=== PATIENT | male | born 1980 | race Two or more races ===

== ENCOUNTER 2025-05-09 20:29 | Inpatient (IN) ==
--- NOTE | 2025-05-09 21:04 | Emergency Department Note ---
Impression & Plan Cellulitis, Chills, Infected surgical wound ED Provider Note NAME: DUSTY OVALLES AGE: 44 SEX: M : 1980 ARRIVES VIA: Walk-In INFORMANT: [Patient] ED PROVIDER(S): [Ruy Turner MD] CHIEF COMPLAINT: Left leg pain HISTORY OF PRESENT ILLNESS: The patient is a 44-year-old male who has had 7 surgeries on the left ankle over the last 3 years. His last surgery was this past October. The patient did have the last surgery in [place] at the [facility]. The patient states that after the surgery, he was on antibiotics for what was thought to be infection. He finished up the antibiotics about 20 days ago. In the last 2 days, he has had some chills and fever and, has noticed some increased swelling as well as some drainage from the medial aspect of the surgical wound. No real increased pain. He is concerned about recurrent infection. There has been no cough or congestion. No abdominal pain or vomiting. No urinary complaints. Of note, he is a diabetic. Of note, the patient is Indian-speaking, the translation line was used. PMHx/PSHx/Social Hx: See Below PHYSICAL EXAM: GENERAL: Patient is in no acute distress. HEENT: No acute trauma, normocephalic atraumatic, mucous membranes moist, no nasal congestion. NECK: No stridor, no adenopathy, no meningismus, trachea is midline. LUNGS: Clear to auscultation bilaterally, no wheeze, no rhonchi, breath sounds equal. HEART: Without murmurs gallops or rubs, regular rate and rhythm. ABDOMEN: Soft, nontender, no peritonitis. EXTREMITIES: No cyanosis. The left lower extremity is swollen and erythematous in particular over the ankle joint. There is an open surgical wound along the medial aspect of the ankle and, there is some drainage noted, this was obtained for culture. Patient does have discomfort to palpate the medial aspect of the left ankle. NEUROLOGIC: Oriented x 3, no acute motor or sensory deficits, no focal weakness. SKIN: No jaundice, no diaphoresis. DIFFERENTIAL DIAGNOSIS: Sepsis, bacteremia, osteomyelitis, cellulitis, among others. EMERGENCY DEPARTMENT PROCEDURES: MEDICAL DECISION MAKING: There is no leukocytosis. A mild anemia was seen with a hemoglobin of 12.1. There was a normal platelet count. No bandemia. No coagulopathy. No renal failure or significant electrolyte abnormality. Lactic acid level is not elevated making sepsis less likely. There was no concerning liver enzyme elevation. Left ankle CT scan shows cellulitis, no abscess or osteomyelitis. Left leg venous ultrasound did not show findings of DVT. On exam, the patient had warmth and discomfort and erythema of the left ankle, especially medially. Some scant drainage from the wound was noted. A culture was obtained. Patient received IV saline for hydration. He received IV ceftriaxone and IV vancomycin. Given the recurrent infection, given his past history, I do think admission with IV antibiotic therapy would be warranted. I spoke with the patient, I spoke with case management, the on-call hospitalist was consulted. Prior/Outside records/notes reviewed: None ECG per my interpretation: Indication was possible sepsis. The ECG shows a normal sinus rhythm with a rate of 95. There is no ST elevation, no PVCs. The QTc is 427. Continuous Cardiac Monitoring per my interpretation: An order was placed for continuous cardiac monitoring. The monitor shows a rate of 101 with sinus tachycardia. Imaging/x-ray results per my interpretation: Chronic Medical/Social conditions affecting care: History of diabetes. Indian-speaking. Care/Management discussed with: Case management, the on-call hospitalist. Level of care consideration(s): After review of the information above and other included data: --I believe the patient requires escalation of care to admission DISPOSITION: Admission Past Med/Surg History Problem List (Updated 05/09/25 @ 23:57 by Ruy Turner MD) Infected surgical wound (Acute) Chills (Acute) Cellulitis (Acute) Medical History Diabetes mellitus Social History Smoking Status: Never smoker Preferred Language: Indian Communication Tools: IPad Feels Safe at Home: Yes Allergies Allergies Allergy/AdvReac Type Severity Reaction Status Date / Time No Known Allergies Allergy Verified 05/09/25 21:20 Home Meds Home Medications Medication Instructions Recorded Confirmed metformin 500 mg tablet 500 mg PO BID 05/09/25 05/09/25 Results & Data (ED) Vital Signs Vital Signs - 24 hr 05/09/25 20:31 05/09/25 21:19 05/09/25 21:30 Temperature 36.6 C Temperature Source Temporal Artery Scan Pulse Rate 101 H Pulse Rate [Radial] 98 H Respiratory Rate 18 18 Respiratory Effort / Characteristics Non-Labored Spontaneous Non-Labored Spontaneous Respiratory Depth Normal Normal Respiratory Pattern Regular Blood Pressure 132/92 Blood Pressure [Left Arm] 127/86 Blood Pressure Mean 105 Blood Pressure Mean [Left Arm] 99 Pulse Oximetry 96 98 Oxygen Delivery Method Room Air Room Air Room Air Sepsis Recent Fever Within 48 Hours No Sepsis New/Unexplained Change in Mental Status No Sepsis Action Taken by Nursing No Action Required 05/09/25 22:13 05/09/25 23:00 Temperature Temperature Source Pulse Rate 88 Pulse Rate [Radial] 82 Respiratory Rate 17 Respiratory Effort / Characteristics Non-Labored Spontaneous Respiratory Depth Normal Respiratory Pattern Regular Blood Pressure Blood Pressure [Left Arm] 134/78 Blood Pressure Mean Blood Pressure Mean [Left Arm] 96 Pulse Oximetry 98 Oxygen Delivery Method Room Air Sepsis Recent Fever Within 48 Hours Sepsis New/Unexplained Change in Mental Status Sepsis Action Taken by Jail Medications Current Medication List: was personally reviewed by me Laboratory Data Attestation: I reviewed the patient's lab results. 05/09/25 21:00 05/09/25 21:00 Lab Results 05/09/25 Range/Units 21:00 WBC 7.49 (4.8-10.8) K/ul RBC 4.38 L (4.70-6.10) M/uL Hgb 12.1 L (14.0-18.0) g/dl Hct 35.3 L (42.0-52.0) % MCV 80.6 (80.0-100.0) fL MCH 27.6 (25.0-34.0) pg MCHC 34.3 (32.0-36.0) g/dL RDW Std Deviation 41.8 (36.4-46.3) fL RDW Coeff of Yoseph 14.3 (11.5-14.5) % Plt Count 281 (130-400) K/uL MPV 9.9 (9.4-12.4) fL Immature Gran % (Auto) 0.4 % Neut % (Auto) 71.4 % Lymph % (Auto) 17.8 % [place] % (Auto) 8.8 % Eos % (Auto) 1.3 % Baso % (Auto) 0.3 % Neut # (Auto) 5.35 (1.40-6.50) K/uL Lymph # (Auto) 1.33 (1.20-3.40) K/uL [place] # (Auto) 0.66 H (0.11-0.59) K/uL Eos # (Auto) 0.10 (0.00-0.50) K/uL Baso # (Auto) 0.02 (0.00-0.20) K/uL Immature Gran # (Auto) 0.03 (0.01-0.20) K/uL PT 10.3 (9.0-12.0) Seconds INR 1.0 (0.9-1.1) APTT 26 (21-31) Seconds PTT Ratio 1.0 Sodium 139 (136-145) mmol/L Potassium 4.0 (3.5-5.1) mmol/L Chloride 106 (98-107) mmol/L Carbon Dioxide 24 (21-32) mmol/L Anion Gap 9 (3-11) BUN 17 (6-23) mg/dl Creatinine 1.02 (0.6-1.4) mg/dl Est Cr Clr Drug Dosing 94.0 ml/min eGFR 91.79 BUN/Creatinine Ratio 16.7 (10-20) Glucose 130 H (70-99(Fasting)) mg/dl Lactate 1.2 (0.4-2.0) mmol/L Calcium 9.0 (8.6-10.3) mg/dl Magnesium 2.1 (1.7-2.4) mg/dl Total Bilirubin 0.5 (0.2-1.0) mg/dl Direct Bilirubin 0.0 (0-0.2) mg/dl AST 22 (13-39) U/L ALT 23 (7-52) U/L Alkaline Phosphatase 133 H (34-104) U/L Troponin I High Sens 3.2 (0-20) pg/ml Total Protein 7.7 (6.0-8.3) gm/dl Albumin 4.1 (3.4-5.0) gm/dl Procalcitonin 0.03 (0-0.5) ng/ml Administered Medications Vancomycin HCl 2,250 mg/ (Sodium Chloride) 545 mls @ 200 mls/hr IV NOW ONE Stop: 05/10/25 01:56 Last Admin: 05/09/25 23:47 Dose: 200 mls/hr Documented By: KRISTINA Discontinued Medications Sodium Chloride (Nss) 1,000 mls @ 999 mls/hr IV .Q1H1M KANDIS Stop: 05/09/25 21:45 Last Infusion: 05/09/25 22:43 Dose: Infused Documented By: Admin: 05/09/25 21:39 Dose: 999 mls/hr Documented By: KRISTINA Ceftriaxone Sodium (Rocephin) 2,000 mg in 50 mls @ 100 mls/hr IV NOW STA Stop: 05/09/25 23:05 Last Infusion: 05/09/25 23:23 Dose: Infused Documented By: Admin: 05/09/25 22:49 Dose: 100 mls/hr Documented By: KRISTINA Ioversol (Optiray 320 100ml) 93 ml IV ONCE ONE Stop: 05/09/25 21:34 Last Admin: 05/09/25 21:33 Dose: 93 ml Documented By: PILAR Imaging Data Radiologist's Impression: Ankle CT 05/09/25 20:58 Exam(s): CT LEFT ANKLE With Contrast IV Amt: 93cc opti 320 EXAM: CT Left Lower Extremity With Intravenous Contrast, Ankle CLINICAL HISTORY: poss abscess. TECHNIQUE: Axial computed tomography images of the left ankle with intravenous contrast. CTDI is 25.24 mGy and DLP is 532.65 mGy-cm. Automated exposure control was utilized for the study. A dose lowering technique was utilized adhering to the principles of ALARA. CONTRAST: Patient received 93cc opti 320 of IV contrast COMPARISON: No relevant prior studies available. FINDINGS: Artifacts: There is extensive beam hardening artifact from metallic hardware throughout the examination. Bones/joints: An intramedullary jim is noted involving the distal tibial meta diaphysis. There also medial and lateral plates spanning the transverse fracture through the tibial metaphysis with extensive screw fixation. There is also multiple screws extending through the talonavicular joint in a lateral surgical clips spanning the anterior calcaneus and cuboid. There is partial ankylosis of the talocalcaneal joint. Degenerative changes of the ankle. Incomplete fusion of the distal tibial fracture. There is absence of the proximal fibula with only a distal segment remaining. Soft tissues: Heterogeneous appearance of the muscle bundles with extensive fatty infiltration. There is diffuse circumferential fat stranding and soft tissue swelling throughout the included distal calf, ankle and dorsum of the foot. No obvious loculated fluid collection, accounting for limitations. No tracking subcutaneous emphysema. IMPRESSION: There is diffuse circumferential fat stranding and soft tissue swelling throughout the included distal calf, ankle and dorsum of the foot. No obvious loculated fluid collection, accounting for limitations. No tracking subcutaneous emphysema, to suggest necrotizing fasciitis. Extensive postoperative changes, as noted above. No acute osseous abnormality suspected. Electronically signed by: Damaso Mir MD 05/09/25 22:30 PM Venous Doppler Study 05/09/25 20:58 Exam(s): US VENOUS LEFT LOWER EXTREMITY EXAM: US Duplex Left Lower Extremity Veins CLINICAL HISTORY: LLE swollen. TECHNIQUE: Real-time duplex ultrasound scan of the left lower extremity veins integrating B-mode two-dimensional vascular structure, Doppler spectral analysis, color flow Doppler imaging and compression. COMPARISON: No relevant prior studies available. FINDINGS: Deep veins: No DVT in the visualized common femoral, femoral, proximal deep femoral or popliteal veins. The veins demonstrate normal color flow, are normally compressible, with normal phasic flow and/or augmentation response. The interrogated calf veins are patent. Superficial veins: No thrombus in the saphenofemoral junction. Soft tissues: Subcutaneous edema noted at the calf. No popliteal cyst. Lymph nodes: Normal lymph nodes in the left inguinal region with preserved fatty hilum, measuring less than 1 cm in short axis diameter. IMPRESSION: No evidence for deep vein thrombosis involving the left lower extremity. Electronically signed by: Damaso Mir MD 05/09/25 23:32 PM Discharge Plan Visit Data Chief Complaint: Leg Injury/Pain Stated Complaint: LT LEG INJURY ED Provider: Ruy Turner Discharge Problem: Cellulitis, Chills, Infected surgical wound Patient Disposition: Admitted As Inpatient Condition: Fair Forms Stand Alone Forms: FP Complete Prescriptions Prescriptions: No Action metformin 500 mg Tablet 500 mg PO BID Referrals Referrals: PCP,NO [Primary Care Provider] - Discharge Problem: Cellulitis Qualifiers: Site of cellulitis: extremity Site of cellulitis of extremity: lower extremity Laterality: left Qualified Code(s): L03.116 - Cellulitis of left lower limb
[2025-05-09] MEDS: OPTIRAY 320 100ml IV ONE (21:33)
[2025-05-09] MEDS: SODIUM CHLORIDE 0.9% 1,000 ML IV SCH (21:39)
[2025-05-09 21:52] LABS: Hematocrit (blood only) 35.3 % (42.0-52.0); Hemoglobin 12.1 g/dl (14.0-18.0); Immature Granulocytes # (auto) 0.03 K/uL (0.01-0.20); Immature Granulocytes % (auto) 0.4 %; Mean Corpuscular Hemoglobin 27.6 pg (25.0-34.0); Mean Corpuscular Volume 80.6 fL (80.0-100.0); Platelet Count 281 K/uL (130-400); RDW Standard Deviation 41.8 fL (36.4-46.3); Red Blood Count 4.38 M/uL (4.70-6.10); White Blood Count 7.49 K/ul (4.8-10.8)
[2025-05-09 21:53] LABS: Alanine Aminotransferase 23.0 U/L (7-52); Albumin Level 4.1 gm/dl (3.4-5.0); Alkaline Phosphatase 133.0 U/L (34-104); Anion Gap 9.0 (3-11); Bilirubin,Total 0.5 mg/dl (0.2-1.0); Blood Urea Nitrogen 17.0 mg/dl (6-23); Calcium 9.0 mg/dl (8.6-10.3); Carbon Dioxide 24.0 mmol/L (21-32); Chloride 106.0 mmol/L (98-107); Creatinine Clr Calc Pharmacy 94.0 ml/min; Glucose 130.0 mg/dl (70-99(Fasting)); Magnesium 2.1 mg/dl (1.7-2.4); Potassium 4.0 mmol/L (3.5-5.1); Sodium 139.0 mmol/L (136-145); Total Protein 7.7 gm/dl (6.0-8.3)
[2025-05-09 22:10] LABS: INR 1.0 (0.9-1.1); Partial Thromboplastin Time 26 Seconds (21-31); Prothrombin Time 10.3 Seconds (9.0-12.0)
--- NOTE | 2025-05-09 22:30 | CT Scan Report ---
Exam(s): CT LEFT ANKLE With Contrast IV Amt: 93cc opti 320 EXAM: CT Left Lower Extremity With Intravenous Contrast, Ankle CLINICAL HISTORY: poss abscess. TECHNIQUE: Axial computed tomography images of the left ankle with intravenous contrast. CTDI is 25.24 mGy and DLP is 532.65 mGy-cm. Automated exposure control was utilized for the study. A dose lowering technique was utilized adhering to the principles of ALARA. CONTRAST: Patient received 93cc opti 320 of IV contrast COMPARISON: No relevant prior studies available. FINDINGS: Artifacts: There is extensive beam hardening artifact from metallic hardware throughout the examination. Bones/joints: An intramedullary jim is noted involving the distal tibial meta diaphysis. There also medial and lateral plates spanning the transverse fracture through the tibial metaphysis with extensive screw fixation. There is also multiple screws extending through the talonavicular joint in a lateral surgical clips spanning the anterior calcaneus and cuboid. There is partial ankylosis of the talocalcaneal joint. Degenerative changes of the ankle. Incomplete fusion of the distal tibial fracture. There is absence of the proximal fibula with only a distal segment remaining. Soft tissues: Heterogeneous appearance of the muscle bundles with extensive fatty infiltration. There is diffuse circumferential fat stranding and soft tissue swelling throughout the included distal calf, ankle and dorsum of the foot. No obvious loculated fluid collection, accounting for limitations. No tracking subcutaneous emphysema. IMPRESSION: There is diffuse circumferential fat stranding and soft tissue swelling throughout the included distal calf, ankle and dorsum of the foot. No obvious loculated fluid collection, accounting for limitations. No tracking subcutaneous emphysema, to suggest necrotizing fasciitis. Extensive postoperative changes, as noted above. No acute osseous abnormality suspected. Electronically signed by: Damaso Mir MD 05/09/25 22:30 PM
[2025-05-09] MEDS: cefTRIAXone SODIUM 2,000 MG/50 ML BAG IV STA (22:49)
[2025-05-09] MEDS ORDERED: VANCOMYCIN CONSULT ACTIVE PRN (23:13)
--- NOTE | 2025-05-09 23:33 | Ultrasound Report ---
Exam(s): US VENOUS LEFT LOWER EXTREMITY EXAM: US Duplex Left Lower Extremity Veins CLINICAL HISTORY: LLE swollen. TECHNIQUE: Real-time duplex ultrasound scan of the left lower extremity veins integrating B-mode two-dimensional vascular structure, Doppler spectral analysis, color flow Doppler imaging and compression. COMPARISON: No relevant prior studies available. FINDINGS: Deep veins: No DVT in the visualized common femoral, femoral, proximal deep femoral or popliteal veins. The veins demonstrate normal color flow, are normally compressible, with normal phasic flow and/or augmentation response. The interrogated calf veins are patent. Superficial veins: No thrombus in the saphenofemoral junction. Soft tissues: Subcutaneous edema noted at the calf. No popliteal cyst. Lymph nodes: Normal lymph nodes in the left inguinal region with preserved fatty hilum, measuring less than 1 cm in short axis diameter. IMPRESSION: No evidence for deep vein thrombosis involving the left lower extremity. Electronically signed by: Damaso Mir MD 05/09/25 23:32 PM
[2025-05-09] MEDS: VANCOMYCIN HCL 2,250 MG in SODIUM CHLORIDE 0.9% 500 ML IV ONE (23:47)
--- NOTE | 2025-05-10 00:21 | History & Physical Report ---
Date of Service May 10, 2025 Assessment & Plan (1) Infected surgical wound: Plan: 44-year-old male Italian-speaking unassigned patient with past med history significant for diabetes, history of multiple surgeries to left ankle presents with infection of the left ankle site. Used Italian translation services to communicate with the patient. Patient says few years back at [place] he fell down and injured his left ankle. Since then he had multiple surgeries. Patient is from [facility] and visiting [place]. Last surgery was in October. After last surgery he developed infection and was hospitalized for about a week and was treated with IV antibiotics and was discharged on oral antibiotics. States he took last oral antibiotics about 3 weeks ago. Last couple of days he was having fevers. Also noticed some drainage from the left ankle wound site. Which prompted him come to the ER. Denies any pain in the leg. Denies any other complaints. Denies any headache. No runny nose or sore throat or cough. No chest pain or shortness of breath. No nausea. No abdominal pain. Appetite is okay. Normal bowel and bladder movements. Ambulating okay. Hemodynamics are okay. Infected surgical wound Infection of the left ankle which had multiple surgeries and last surgery was in October. Will follow the cultures. No DVT. CT scan no obvious abscess or deep infection ER empirical started Vanco and Rocephin. Will cover with Vanco and cefepime Podiatry consult in a.m. Diabetes Hold metformin Insulin sliding scale Will follow HbA1c levels Hypoxia Oxygen sats dropping while sleeping nocturnal pulse ox study ordered sleep study as out patient. DVT prophylaxis Lovenox for now Disposition Medical floor Full code History of Present Illness Chief Complaint: Left foot infection Primary Care Provider: NO PCP 44-year-old male Italian-speaking unassigned patient with past med history significant for diabetes, history of multiple surgeries to left ankle presents with infection of the left ankle site. Used Italian translation services to communicate with the patient. Patient says few years back at [place] he fell down and injured his left ankle. Since then he had multiple surgeries. Patient is from [facility] and visiting [place]. Last surgery was in October. After last surgery he developed infection and was hospitalized for about a week and was treated with IV antibiotics and was discharged on oral antibiotics. States he took last oral antibiotics about 3 weeks ago. Last couple of days he was having fevers. Also noticed some drainage from the left ankle wound site. Which prompted him come to the ER. Denies any pain in the leg. Denies any othe r complaints. Denies any headache. No runny nose or sore throat or cough. No chest pain or shortness of breath. No nausea. No abdominal pain. Appetite is okay. Normal bowel and bladder movements. Ambulating okay. Hemodynamics are okay. Past medical history. As mentioned above Past surgical history. Multiple left ankle surgeries. Back surgery. Social history. Denies smoking. No alcohol use. No drug use. Family history. Mother had diabetes. Allergies Allergy/AdvReac Type Severity Reaction Status Date / Time No Known Allergies Allergy Verified 05/09/25 21:20 Home Medications Medication Instructions Recorded Confirmed Type metformin 500 mg tablet 500 mg PO BID 05/09/25 05/09/25 History Past Med/Surg History Problem List (Updated 05/09/25 @ 23:57 by Ruy Turner MD) Infected surgical wound (Acute) Chills (Acute) Cellulitis (Acute) Medical History Diabetes mellitus Social History Smoking Status: Unknown if ever smoked Hx Alcohol Use: No Hx Substance Use: No Preferred Language: Italian Communication Ability: Effective Communication Tools: IPad Manager Photography Required: Yes Beliefs That Will Affect Care: None Current Living Situation: Family Feels Safe at Home: Yes Review of Systems Review of Systems: All systems reviewed & are unremarkable except as noted in HPI & below Physical Exam Physical Exam: General- Not in distress Head- atraumatic Eyes- PERRL. ENT- oropharynx clear Neck- supple, no JVD. Lungs- clear to auscultation no wheezing or crackles Heart- regular rhythm; no murmur, no gallop. Abdomen- normal bowel sounds, soft, nontender, no distension. Extremities- Left ankle swollen and small opening seen on medial aspect with mild drainage Neuro- alert, oriented PERRL, no facial palsy; no dysarthria; moves extremities Results & Data Results & Data Vital Signs (Past 12 Hours) Vital Signs Temp Pulse Pulse Resp BP BP Pulse Ox 05/09/25 23:00 82 17 134/78 98 05/09/25 22:13 88 05/09/25 21:30 98 H 18 127/86 98 05/09/25 21:19 05/09/25 20:31 36.6 C 101 H 18 132/92 96 O2 Del Method 05/09/25 23:00 Room Air 05/09/25 22:13 05/09/25 21:30 Room Air 05/09/25 21:19 Room Air 05/09/25 20:31 Room Air Diagnostic Findings Laboratory Results WBC 7.49 K/ul (4.8-10.8) 05/09/25 21:00 RBC 4.38 M/uL (4.70-6.10) L 05/09/25 21:00 Hgb 12.1 g/dl (14.0-18.0) L 05/09/25 21:00 Hct 35.3 % (42.0-52.0) L 05/09/25 21:00 MCV 80.6 fL (80.0-100.0) 05/09/25 21:00 MCH 27.6 pg (25.0-34.0) 05/09/25 21:00 MCHC 34.3 g/dL (32.0-36.0) 05/09/25 21:00 RDW Std Deviation 41.8 fL (36.4-46.3) 05/09/25 21:00 RDW Coeff of Yoseph 14.3 % (11.5-14.5) 05/09/25 21:00 Plt Count 281 K/uL (130-400) 05/09/25 21:00 MPV 9.9 fL (9.4-12.4) 05/09/25 21:00 Immature Gran % (Auto) 0.4 % 05/09/25 21:00 Neut % (Auto) 71.4 % 05/09/25 21:00 Lymph % (Auto) 17.8 % 05/09/25 21:00 [place] % (Auto) 8.8 % 05/09/25 21:00 Eos % (Auto) 1.3 % 05/09/25 21:00 Baso % (Auto) 0.3 % 05/09/25 21:00 Neut # (Auto) 5.35 K/uL (1.40-6.50) 05/09/25 21:00 Lymph # (Auto) 1.33 K/uL (1.20-3.40) 05/09/25 21:00 [place] # (Auto) 0.66 K/uL (0.11-0.59) H 05/09/25 21:00 Eos # (Auto) 0.10 K/uL (0.00-0.50) 05/09/25 21:00 Baso # (Auto) 0.02 K/uL (0.00-0.20) 05/09/25 21:00 Immature Gran # (Auto) 0.03 K/uL (0.01-0.20) 05/09/25 21:00 PT 10.3 Seconds (9.0-12.0) 05/09/25 21:00 INR 1.0 (0.9-1.1) 05/09/25 21:00 APTT 26 Seconds (21-31) 05/09/25 21:00 PTT Ratio 1.0 05/09/25 21:00 Sodium 139 mmol/L (136-145) 05/09/25 21:00 Potassium 4.0 mmol/L (3.5-5.1) 05/09/25 21:00 Chloride 106 mmol/L (98-107) 05/09/25 21:00 Carbon Dioxide 24 mmol/L (21-32) 05/09/25 21:00 Anion Gap 9 (3-11) 05/09/25 21:00 BUN 17 mg/dl (6-23) 05/09/25 21:00 Creatinine 1.02 mg/dl (0.6-1.4) 05/09/25 21:00 Est Cr Clr Drug Dosing 94.0 ml/min 05/09/25 21:00 eGFR 91.79 05/09/25 21:00 BUN/Creatinine Ratio 16.7 (10-20) 05/09/25 21:00 Glucose 130 mg/dl (70-99(Fasting)) H 05/09/25 21:00 Lactate 1.2 mmol/L (0.4-2.0) 05/09/25 21:00 Calcium 9.0 mg/dl (8.6-10.3) 05/09/25 21:00 Magnesium 2.1 mg/dl (1.7-2.4) 05/09/25 21:00 Total Bilirubin 0.5 mg/dl (0.2-1.0) 05/09/25 21:00 Direct Bilirubin 0.0 mg/dl (0-0.2) 05/09/25 21:00 AST 22 U/L (13-39) 05/09/25 21:00 ALT 23 U/L (7-52) 05/09/25 21:00 Alkaline Phosphatase 133 U/L (34-104) H 05/09/25 21:00 Troponin I High Sens 3.2 pg/ml (0-20) 05/09/25 21:00 Total Protein 7.7 gm/dl (6.0-8.3) 05/09/25 21:00 Albumin 4.1 gm/dl (3.4-5.0) 05/09/25 21:00 Procalcitonin 0.03 ng/ml (0-0.5) 05/09/25 21:[address] 05/09/25 20:58 Exam(s): CT LEFT ANKLE With Contrast IV Amt: 93cc opti 320 EXAM: CT Left Lower Extremity With Intravenous Contrast, Ankle CLINICAL HISTORY: poss abscess. TECHNIQUE: Axial computed tomography images of the left ankle with intravenous contrast. CTDI is 25.24 mGy and DLP is 532.65 mGy-cm. Automated exposure control was utilized for the study. A dose lowering technique was utilized adhering to the principles of ALARA. CONTRAST: Patient received 93cc opti 320 of IV contrast COMPARISON: No relevant prior studies available. FINDINGS: Artifacts: There is extensive beam hardening artifact from metallic hardware throughout the examination. Bones/joints: An intramedullary jim is noted involving the distal tibial meta diaphysis. There also medial and lateral plates spanning the transverse fracture through the tibial metaphysis with extensive screw fixation. There is also multiple screws extending through the talonavicular joint in a lateral surgical clips spanning the anterior calcaneus and cuboid. There is partial ankylosis of the talocalcaneal joint. Degenerative changes of the ankle. Incomplete fusion of the distal tibial fracture. There is absence of the proximal fibula with only a distal segment remaining. Soft tissues: Heterogeneous appearance of the muscle bundles with extensive fatty infiltration. There is diffuse circumferential fat stranding and soft tissue swelling throughout the included distal calf, ankle and dorsum of the foot. No obvious loculated fluid collection, accounting for limitations. No tracking subcutaneous emphysema. IMPRESSION: There is diffuse circumferential fat stranding and soft tissue swelling throughout the included distal calf, ankle and dorsum of the foot. No obvious loculated fluid collection, accounting for limitations. No tracking subcutaneous emphysema, to suggest necrotizing fasciitis. Extensive postoperative changes, as noted above. No acute osseous abnormality suspected. Electronically signed by: Damaso Mir MD 05/09/25 22:30 PM Venous Doppler Study 05/09/25 20:58 Exam(s): US VENOUS LEFT LOWER EXTREMITY EXAM: US Duplex Left Lower Extremity Veins CLINICAL HISTORY: LLE swollen. TECHNIQUE: Real-time duplex ultrasound scan of the left lower extremity veins integrating B-mode two-dimensional vascular structure, Doppler spectral analysis, color flow Doppler imaging and compression. COMPARISON: No relevant prior studies available. FINDINGS: Deep veins: No DVT in the visualized common femoral, femoral, proximal deep femoral or popliteal veins. The veins demonstrate normal color flow, are normally compressible, with normal phasic flow and/or augmentation response. The interrogated calf veins are patent. Superficial veins: No thrombus in the saphenofemoral junction. Soft tissues: Subcutaneous edema noted at the calf. No popliteal cyst. Lymph nodes: Normal lymph nodes in the left inguinal region with preserved fatty hilum, measuring less than 1 cm in short axis diameter. IMPRESSION: No evidence for deep vein thrombosis involving the left lower extremity. Electronically signed by: Damaso Mir MD 05/09/25 23:32 PM ECG Additional Comments: ECG. Normal sinus rhythm rate of 95. No acute ST changes seen. Code Status & VTE Plan VTE Prophylaxis Plan VTE Prophylaxis will be ordered: Yes
[2025-05-10] MEDS ORDERED: DEXTROSE 50% 50 ML SYRINGE IV PRN (00:56)
[2025-05-10] MEDS ORDERED: CARBOHYDRATES FOR HYPOGLYCEMIA PO PRN (00:56)
[2025-05-10] MEDS ORDERED: POLYETHYLENE (MIRALAX) 17 GM PACK PO PRN (00:56)
[2025-05-10] MEDS ORDERED: GLUCOSE 40% GEL 15 GM TUBE PO PRN (00:56)
[2025-05-10] MEDS ORDERED: GLUCOSE 10 TAB/TUBE PO PRN (00:56)
[2025-05-10] MEDS ORDERED: GLUCAGON FOR INJ 1 MG VIAL SQ PRN (00:56)
[2025-05-10] MEDS: ENOXAPARIN INJ 40 MG/0.4 ML SYR SQ SCH (01:31)
[2025-05-10] MEDS: VANCOMYCIN HCL 1,250 MG in SODIUM CHLORIDE 0.9% 250 ML IV SCH (07:19)
[2025-05-10] MEDS: ACETAMINOPHEN 325 MG TAB PO PRN (07:19)
[2025-05-10] MEDS: CEFEPIME 2000MG 2,000 MG/20 ML SYR IV SCH (07:19)
[2025-05-10 07:30] LABS: Hematocrit (blood only) 37.8 % (42.0-52.0); Hemoglobin 12.4 g/dl (14.0-18.0); Immature Granulocytes # (auto) 0.03 K/uL (0.01-0.20); Immature Granulocytes % (auto) 0.4 %; Mean Corpuscular Hemoglobin 26.6 pg (25.0-34.0); Mean Corpuscular Volume 81.1 fL (80.0-100.0); Platelet Count 264 K/uL (130-400); RDW Standard Deviation 42.2 fL (36.4-46.3); Red Blood Count 4.66 M/uL (4.70-6.10); White Blood Count 6.89 K/ul (4.8-10.8)
[2025-05-10 07:46] LABS: Anion Gap 7.0 (3-11); Blood Urea Nitrogen 12.0 mg/dl (6-23); Calcium 8.7 mg/dl (8.6-10.3); Carbon Dioxide 26.0 mmol/L (21-32); Chloride 105.0 mmol/L (98-107); Creatinine Clr Calc Pharmacy 105.4 ml/min; Glucose 127.0 mg/dl (70-99(Fasting)); Magnesium 2.0 mg/dl (1.7-2.4); Potassium 4.3 mmol/L (3.5-5.1); Sodium 138.0 mmol/L (136-145)
[2025-05-10] MEDS: INSULIN ASPART PER UNIT CHARGE SC SCH (08:09)
--- NOTE | 2025-05-10 10:05 | Pharmacy Report ---
Pharmacy PK ABX Note - Date of Service May 10, 2025 - Assessment and Plan Assessment 44 year old M receiving cefepime and vancomycin for treatment of surgical site infection. Pertinent microbiologic data includes: blood cultures x2 pending, left ankle culture pending. * 7 surgeries on left ankle in past three years * Last surgery was 10/2024 and was on antibiotics until about three weeks ago for infection * Presents to the hospital 05/09 evening with chills, fever, swelling, and drainage from surgical wound * Afebrile on arrival * WBC 6.89 today from 7.49 last night * SCr 0.91 today (CrCl ~105 mL/min) - unknown baseline Day #1 of antimicrobial therapy. Plan Vancomycin * Loading dose: 2250 mg IV x 1 (given 05/09 @5748) * Maintenance dose: 1250 mg IV every 12 hours * Regimen is predicted to achieve target AUC/ASIM of 400-600 mg/L.hr * Random level ordered for: 05/11/25 @0440 Pharmacy will continue to follow and will adjust dose/frequency as necessary. Thank you. Pharmacy has transitioned to AUC monitoring for vancomycin. AUC/ASIM is the preferred PK/PD target and is associated with decreased risk of nephrotoxicity compared to traditional trough targets.
[2025-05-10 13:18] LABS: Hemoglobin A1C 6.1 % (4.5-5.6)
[2025-05-10 14:38] LABS: A calco-baum cmplx NotReported Not Detected (NotDetected); Bact fragilis Not Reported Not Detected (NotDetected); Blood Culture Id Panel See PCR Comment (NotDetected); C auris Not Reported Not Detected (NotDetected); Calbicans Not Reported Not Detected (NotDetected); Candida glabrata Not Reported Not Detected (NotDetected); Candida krusei Not Reported Not Detected (NotDetected); Cneoformans/gatti Not Reported Not Detected (NotDetected); Cparapsilosis Not Reported Not Detected (NotDetected); Ctropicalis Not Reported Not Detected (NotDetected); E cloacae compx Not Reported Not Detected (NotDetected); Efaecalis Not Reported Not Detected (NotDetected); Efaecium Not Reported Not Detected (NotDetected); Enterobacterales Not Reported Not Detected (NotDetected); Escherichia coli Not Reported Not Detected (NotDetected); H influenzae Not Reported Not Detected (NotDetected); K aerogenes Not Reported Not Detected (NotDetected); Koxytoca Not Reported Not Detected (NotDetected); Kpneumoniae grp Not Reported Not Detected (NotDetected); Lmonocyt Not Reported Not Detected (NotDetected); N meningitidis Not Reported Not Detected (NotDetected); P aeruginosa Not Reported Not Detected (NotDetected); Proteus spp Not Reported Not Detected (NotDetected); Salmonella spp Not Reported Not Detected (NotDetected); Staph lugdunensis Not Reported Not Detected (NotDetected); Staphaureus Not Reported DETECTED (NotDetected); Staphepi Not Reported Not Detected (NotDetected); Staphylococcus spp. DETECTED (NotDetected); Stenmaltophilia Not Reported Not Detected (NotDetected); Strep agal(GrpB) Not Reported Not Detected (NotDetected); Strep pneum Not Reported Not Detected (NotDetected); Strep pyog (GrpA) Not Reported Not Detected (NotDetected); Strep spp Not Reported Not Detected (NotDetected)
[2025-05-10 14:45] LABS: Staph spp. Not Reported DETECTED (NotDetected); mecAC+MREJ Resistant Gene MRSA DETECTED (NotDetected)
--- NOTE | 2025-05-10 15:05 | Hospitalist Progress Note ---
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 Had a nonhealing incision since that time. Had fever and chills last night. Patient with MRSA bacteremia most likely due to infected hardware and osteomyeli tis of the ankle by definition with a sinus/fistulous track extending down to the bone. Continue current antibiotics while cultures are finalizing Communication with podiatry planning on doing I&D tomorrow Consult infectious disease for MRSA bacteremia Continue to monitor glucose and cover with insulin Monitor electrolytes and renal function Visit was assisted with director general. Admission and Anticipated Discharge Date Admission Date: May 10, 2025 Subjective Patient reports feeling better. Some throbbing around the wound. Podiatry at bedside as well Physical Exam Physical Exam: Constitutional: Alert, nontoxic HEENT: Mucous membranes moist. Lungs: Clear to auscultation, decreased, no wheezes rales or rhonchi CV: S1-S2, regular Abdomen: Soft, nontender, nondistended Extremities: Left lower extremity with open sinus tract and medial malleolus, some surrounding erythema, edema Neuro: No focal deficits Psych: Cooperative, normal mood Results & Data Results & Data Vital Signs (Past 12 Hours) Vital Signs Pulse Resp BP Pulse Ox O2 Del Method 05/10/25 06:21 78 14 05/10/25 06:00 96 H 15 140/84 96 Room Air 05/10/25 05:00 88 20 143/100 H 94 Room Air 05/10/25 04:03 88 16 148/98 H 96 Room Air 05/10/25 03:45 86 18 97 Room Air 05/10/25 03:00 84 18 127/93 95 Room Air Diagnostic Findings Reviewed imaging, laboratory and diagnostic studies. Pertinent findings as below. Blood culture preliminarily growing MRSA
--- NOTE | 2025-05-10 15:18 | Podiatry Consultation ---
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 We discussed at length etiology and treatment of his left ankle infection. He has a complicated social situation here, away from home, but will require some level of acute care prior to discharge home. We did discuss that if he was doing well systemically, he could consider a discharge to home with oral antibiotics and getting back home to [place]. Now, with positive blood cultures, he would benefit from an incision and drainage of the acute infection over the medial malleolus. He will almost certainly require hardware removal and revision surgery after treatment of the current infectious process. We will add him on for this I&D and deep tissue/bone biopsy tomorrow for better source control. We will continue to follow while in house. Thanks for the consult. We are always happy to help when possible. History of Present Illness Reason for Consultation: Left ankle infection Attending Physician: Des Marcus DO History of Present Illness Patient seen at bedside with the assistance of real time translation service in the emergency department. He states that he has a complicated history of left foot, ankle, and leg trauma that has had extensive surgical reconstructions in the past. This includes a multiple month history of postoperative infections requiring further surgery. The last appears to be an incision and drainage of the left ankle abscess and septic joint though the hardware was left intact. Now, he presented with similar concerns, including feeling ill for the last few days with increasing drainage, redness, and the reemergence of his wound. This wound had been previously healed but he is concerned that the wound wouldn't heal without surgery before and is worried he needs more, now. Allergies Allergy/AdvReac Type Severity Reaction Status Date / Time No Known Allergies Allergy Verified 05/09/25 21:20 Home Medications Medication Instructions Recorded Confirmed Type metformin 500 mg tablet 500 mg PO BID 05/09/25 05/09/25 History Patient History Medical History Diabetes mellitus Social History (Reviewed 05/10/25 @ 15:20 by BRADFORD Fox Smoking Status: Unknown if ever smoked Hx Alcohol Use: No Hx Substance Use: No Preferred Language: Kinyarwanda Communication Ability: Effective Communication Tools: IPad Stonecutter Apprentice Hand Required: Yes Beliefs That Will Affect Care: None Current Living Situation: Family Feels Safe at Home: Yes Review of Systems Review of Systems: All systems reviewed & are unremarkable except as noted in HPI & below Constitutional: + fever, + chills, + fatigue and + weakn ess Eyes: no problem reported Ear, Nose, Mouth, Throat: no problem reported Respiratory: no problem reported Cardiovascular: + edema; no problem reported Gastrointestinal: + nausea; no vomiting and no problem rep orted Musculoskeletal: + joint pain, + deformity and + limited range of motion Integumentary: + skin ulcer, + wounds and + erythema Neurologic: + loss of sensation, + numbness and + pa resthesia; no generalized weakness Psychiatric: no problem reported Physical Exam Physical Exam: Lower extremity physical exam: DP/PT pulses 2/4 bilateral. CFT brisk to the digits. Diffuse scarring and hemosiderin deposition to the left lower extremity with multiple surgical scars to the leg from the knee distally. 2cm ulceration noted to the proximal extent of a medial malleolar surgical scar. There is pain on palpation of the medial malleolus without palpable fluctuance or abscess suspected. Scant purulent drainage is noted to the ulceration with no active bleeding. Wound bed is fibrous without granulation tissue. No deep probing attempted on physical exam due to pain. CT reveals no suspected abscess or soft tissue gas. Hardware is intact without failure, though there is evidence of new bone growth surrounding the hardware, compatible with motion and/or chronic hardware infection. Constitutional: WD/WN, vitals as above + ill appearing and + obese; no acute distress Eyes: PERRL, conjunctivae normal, anicteric sclerae ENMT: external ear and nose normal, oropharynx normal Neck: trachea midline, no thyromegaly normal visual inspection Respiratory: normal respiratory effort; no respiratory distress Cardiovascular: Rate/Rhythm: regular rate and regular rhythm Vessels: p osterior tibial pulses present and dorsalis pedis pulses present Chest (Breasts): Chest: normal inspection of chest Gastrointestinal (Abdomen): Inspection/Auscultation: abdomen normal to inspection Percussion/Palpation: + abdomen tender and abdomen soft Musculoskeletal: no cyanosis or clubbing, extremities motor strength 5/5 Head/Neck/Chest: normocephalic and head atraumatic Extremities: extremities normal to inspection Ankle: + deformity, + skin erythema, + limited ROM of ankle and + ankle ROM with crepitation Skin: + ulcer, + induration, + wound and + felicita thema Neurologic: awake; + abnormal touch/pain/proprioception, + abnormal sensation to monofilament and no focal motor deficits Psychiatric: A+Ox3, euthymic affect Results & Data Vital Signs (Past 12 Hours) Vital Signs Pulse Resp BP Pulse Ox O2 Del Method 05/10/25 06:21 78 14 05/10/25 06:00 96 H 15 140/84 96 Room Air 05/10/25 05:00 88 20 143/100 H 94 Room Air 05/10/25 04:03 88 16 148/98 H 96 Room Air 05/10/25 03:45 86 18 97 Room Air
--- NOTE | 2025-05-10 17:38 | Electrocardiogram Report ---
Test Reason : Blood Pressure : */* mmHG Vent. Rate : 95 BPM Atrial Rate : 95 BPM P-R Int : 158 ms QRS Dur : 80 ms QT Int : 340 ms P-R-T Axes : 35 10 21 degrees QTcB Int : 427 ms Normal sinus rhythm Normal ECG No previous ECGs available Confirmed by Balaji Navarro ([id number]) on 05/10/2025 5:38:15 PM Referred By: REFERRED SELF Confirmed By: Balaji Navarro
[2025-05-11] MEDS ORDERED: Nursing to Pharmacy Communication SCH ×2 (01:30→14:00)
[2025-05-11] MEDS: INSULIN ASPART PER UNIT CHARGE SC SCH ×2 (05:58→17:48)
[2025-05-11 06:01] LABS: Hematocrit (blood only) 37.9 % (42.0-52.0); Hemoglobin 12.4 g/dl (14.0-18.0); Mean Corpuscular Hemoglobin 26.6 pg (25.0-34.0); Mean Corpuscular Volume 81.2 fL (80.0-100.0); Platelet Count 288 K/uL (130-400); RDW Standard Deviation 42.0 fL (36.4-46.3); Red Blood Count 4.67 M/uL (4.70-6.10); White Blood Count 6.97 K/ul (4.8-10.8)
[2025-05-11 06:17] LABS: Anion Gap 7.0 (3-11); Blood Urea Nitrogen 17.0 mg/dl (6-23); Calcium 8.9 mg/dl (8.6-10.3); Carbon Dioxide 26.0 mmol/L (21-32); Chloride 105.0 mmol/L (98-107); Creatinine Clr Calc Pharmacy 91.3 ml/min; Glucose 127.0 mg/dl (70-99(Fasting)); Potassium 4.4 mmol/L (3.5-5.1); Sodium 138.0 mmol/L (136-145)
--- NOTE | 2025-05-11 09:31 | Pharmacy Report ---
Pharmacy PK ABX Note - Date of Service May 11, 2025 - Assessment and Plan Assessment 44 year old M receiving cefepime and vancomycin for treatment MRSA bacteremia secondary to left ankle osteomyelitis/surgical-site infection. Pertinent microbiologic data includes: blood cultures x 2 (05/09) growing Staphylococcus aureus (MRSA per biofire), left ankle (05/09) growing Staphylococcus aureus and Enterobacter cloacae complex . Sensitivities still pending. * 7 surgeries on left ankle in past three years * Last surgery was 10/2024 and was on antibiotics until about three weeks ago for infection * Presents to the hospital 05/09 evening with chills, fever, swelling, and drainage from surgical wound * Renal function has remained reasonably stable, will continue to monitor * TTE ordered to assess for IE, test not yet performed * Infectious diseases consulted Day #3 of antimicrobial therapy. Plan Vancomycin * Current regimen: 1250 mg IV every 12 hours * Random level obtained 05/11/25 resulted as 7.9 mcg/mL. This is predicted to result in subtherapeutic AUC/ASIM < 400 mg/L.hr * Change to 1000 mg IV every 8 hours * Predicted AUC at steady state: 533 mg/L.hr * Repeat vanco level ordered for: 05/13/25 Pharmacy will continue to follow and will adjust dose/frequency as necessary. Thank you. Pharmacy has transitioned to AUC monitoring for vancomycin. AUC/ASIM is the preferred PK/PD target and is associated with decreased risk of nephrotoxicity compared to traditional trough targets.
[2025-05-11] MEDS ORDERED: ONDANSETRON INJ 2 MG/ML 2 ML VIAL ONE (11:57)
[2025-05-11] MEDS ORDERED: LIDOCAINE 2% 2 ML VIAL/AMP(20MG/ML) INFIL ONE (11:57)
[2025-05-11] MEDS ORDERED: PROPOFOL IV EMULSION 10 MG/ML 20 ML VIAL IV ONE (11:57)
[2025-05-11] MEDS ORDERED: MIDAZOLAM HCL 1 MG/ML 2ML VIAL ONE ×2 (11:58→12:29)
--- NOTE | 2025-05-11 12:09 | History & Physical Bridge Note ---
Date of Service May 11, 2025 History & Physical Bridge Note I have examined the patient, reviewed the History & Physical and in the interval since the performance of the History & Physical I have noted the following changes of clinical significance: no changes noted. With the help of an landscape crew leader, Preoperative instructions, postoperative instructions, relative risks, and outcomes were all discussed. Consent was obtained for this left ankle incision and drainage. All questions were answered.
--- NOTE | 2025-05-11 12:09 | Anesthesiology Consultation ---
Date of Service May 11, 2025 Assessment & Plan Chart Review Chart Review: Acceptable Risk for Surgery and Patient NOT seen in Pre Admission Testing Consults Requested none ASA ASA3 Proposed Anesthesia Anesthesia Type: MAC Risk / Benefits Reviewed With: PT / POA / Parent / Guardian, Accepts Plan and Informed Consent Obtained History Surgery Operation Date: 05/11/25 08:20 Proposed Procedures p Left Ankle Incision and Drainage - Thuan Wadsworth DPM Height/Weight Height: 5 ft 5 in Weight: 91.4 kg Allergies Allergy/AdvReac Type Severity Reaction Status Date / Time No Known Allergies Allergy Verified 05/09/25 21:20 Medications Home Medications Medication Instructions Recorded Confirmed Last Taken metformin 500 mg tablet 500 mg PO BID 05/09/25 05/09/25 05/09/25 Active Medications Generic Name Dose Route Start Last Admin Trade Name Freq PRN Reason Stop Dose Admin Acetaminophen 650 mg 05/10/25 00:56 05/10/25 21:37 Acetaminophen 325 Mg Tab PO 06/09/25 00:55 650 mg Q4H PRN Administration pain/fever Enoxaparin Sodium 40 mg 05/10/25 00:56 05/10/25 23:39 Enoxaparin Inj 40 Mg/0.4 Ml Syr SQ 06/09/25 00:55 Not Given Q24H KANDIS Cefepime HCl 2,000 mg in 20 mls @ 5 mls/min 05/10/25 08:00 05/11/25 08:33 Maxipime 2000mg IV 05/17/25 07:59 5 mls/min Q8H KANDIS Administration Protocol Lactated Ringer's 1,000 mls @ 15 mls/hr 05/11/25 12:00 05/11/25 12:11 Lr IV 05/14/25 11:59 15 mls/hr .Q24H KANDIS Administration Insulin Aspart 0 units 05/11/25 06:00 05/11/25 05:58 Insulin Aspart Per Unit Charge SC 06/10/25 05:59 Not Given Q6 KANDIS Past Medical History Medical History Diabetes mellitus HTN HLD Obese CARL Anemia Exercise / Class Metabolic Activity II 4-5 Yardwork/Stairs/Walk up hill Past Anesthesia History No Hx of Anesthesia Complications and No Family Hx of Anesthesia Complications History of PONV No Hx of PONV and No Hx of Motion Sickness Social History Smoking Status: Unknown if ever smoked Hx Alcohol Use: No Hx Substance Use: No Physical Exam Vital Signs Last Vital Signs Temp 36.9 C 05/11/25 11:51 Pulse 104 H 05/11/25 11:51 Resp 18 05/11/25 11:51 BP 114/89 05/11/25 11:51 Pulse Ox 98 05/11/25 11:51 O2 Del Method Room Air 05/11/25 11:51 O2 Flow Rate 2 05/11/25 03:03 Constitutional + obese; no acute distress ENMT Mouth: + dentition abnormality and + poor dentition Thyromental Distance: > or= 3.5 Finger Breadths Mallampati Class: II Neck normal visual inspection, trachea midline and + facial hair; neck extension not limited Respiratory normal respiratory effort Auscultation: lungs clear to auscultation bilaterally Cardiovascular Rate/Rhythm: regular rate and regular rhythm Heart Sounds: no murmur Vessels: no carotid bruit Musculoskeletal Spine: normal cervical ROM and no pain with cervical ROM Extremities: full ROM of extremities Neurologic moves all extremities Motor/Sensory: no sensory deficit Psychiatric Orientation: alert and oriented x 3 Testing Laboratory Results 05/11/25 05:30 05/11/25 05:30 PT 10.3 Seconds (9.0-12.0) 05/09/25 21:00 INR 1.0 (0.9-1.1) 05/09/25 21:00 APTT 26 Seconds (21-31) 05/09/25 21:00 Hemoglobin A1c 6.1 % (4.5-5.6) H 05/10/25 07:08 05/09/25 21:04 Gram Stain - Final Ankle,Left Aerobic and Anaerobic Culture - Preliminary Staph aureus MRSA Enterobacter cloacae complex 05/09/25 21:04 Aerobic Blood Culture - Preliminary Blood No growth in Aerobic bottle after 24 hours. Anaerobic Blood Culture - Preliminary Staphylococcus aureus 05/09/25 Unknown Aerobic Blood Culture - Preliminary Blood No growth in Aerobic bottle after 24 hours. Anaerobic Blood Culture - Preliminary Staphylococcus aureus 05/11/25 05/11/25 11:36 05:54 POC Glucose 115 H 122 H Electrocardiogram Date: 05/09/25 Findings: + NSR @ (@ 95)
[2025-05-11] MEDS: LACTATED RINGER'S 1,000 ML IV SCH (12:11)
[2025-05-11] MEDS ORDERED: ONDANSETRON INJ 2 MG/ML 2 ML VIAL IV PRN (12:13)
[2025-05-11] MEDS ORDERED: NALOXONE HCL 0.4 MG/1 ML VIAL/CARP IV PRN (12:13)
[2025-05-11] MEDS ORDERED: PROMETHAZINE HCL 6.25 MG in SODIUM CHLORIDE 0.9% 50 ML IV PRN (12:13)
[2025-05-11] MEDS ORDERED: FLUMAZENIL 0.1 MG/1 ML 10 ML VIAL IV PRN (12:13)
[2025-05-11] MEDS ORDERED: ATROPINE SULFATE 0.1 MG/ML 10ML SYR IV PRN (12:13)
[2025-05-11] MEDS ORDERED: HYDROmorphone INJ 1 MG/ML SYRINGE IV PRN (12:13)
[2025-05-11] MEDS ORDERED: KETAMINE HCL 10MG/ML SYR ONE (12:29)
[2025-05-11] MEDS ORDERED: PROPOFOL IV EMULSION 10 MG/ML 100 ML VIAL IV ONE (12:44)
--- NOTE | 2025-05-11 13:01 | Infectious Disease Consult ---
Date of Service May 11, 2025 Telehealth Information I performed this visit using a real-time telehealth connection between my location and the patients location ([facility]). After connecting through interactive tele-video, patient was identified by name and date of and/or wristband check.Patient (or authorized healthcare leather goods sales representative) was informed that this was a telemedicine visit and it was being conducted confidentially over secure lines. My office door was closed and no one else was present in the room with me.Patient (or authorized healthcare leather goods sales representative) provided consent to proceed with the visit, expressed an understanding of privacy and security of the telemedicine visit, and gave permission to have a hospital leather goods sales representative in the room in order to assist with the visit and to conduct portions of the visit, as needed. I informed the patient (or authorized healthcare leather goods sales representative) that I reviewed their record and presented the opportunity for them to ask any questions regarding the visit today. The patient agreed to participate. 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 on 05/10/2025 for infection of the left ankle site. At [facility], pt has CT LLE on 05/10/2025 which showed cellulitis w/o abscess. Infectious work-up showed blood cultures (+) for MRSA. Left ankle culture (+) Enterobacter and MRSA. Podiatry consulted. Planned for OR today. Pt diagnosed with Left ankle hardware infection (enterobacter and MRSA) complicated by MRSA bacteremia. Pt currently on Cefepime and Vancomycin IV. Plan: - Recommend continuing Cefepime IV and Vancomycin IV for now. - Agree with OR, however would recommend removal of infected hardware if possible. Recommend cultures to be done: bacterial, fungi, and AFB cultures. - Recommend TTE to help r/o endovascular seeding given MRSA bacteremia. - Recommend blood cultures every other day until negative. - we will not actively monitor this patient; for additional recommendations please contact the ID physician covering teledoc services via tiger text or call. Thank you. History of Present Illness History of Present Illness Reason for consult: MRSA bacteremia 44-year-old male Cuban-speaking with PMHx of diabetes, history of multiple surgeries to left ankle presented to [facility] on 05/10/2025 for infection of the left ankle site. Per notes and chart review, pt said he spent the past few years back at [place] where he fell down and injured his left ankle. Since then he had multiple surgeries. Patient is from [facility] and visiting [place]. Last surgery was in October. After last surgery he developed infection and was hospitalized for about a week and was treated with IV antibiotics and was discharged on oral antibiotics. Pt said he last oral antibiotics about 3 weeks ago. Pt started having fevers and drainage from the left ankle wound site which prompted him come to the ER. At [facility], pt has CT LLE on 05/10/2025 which showed cellulitis w/o abscess. Infectious work-up showed blood cultures (+) for MRSA. Left ankle culture (+) Enterobacter and MRSA. Podiatry consulted. Planned for OR today. ID consulted for evaluation and management. Allergies Allergy/AdvReac Type Severity Reaction Status Date / Time No Known Allergies Allergy Verified 05/09/25 21:20 Home Medications Medication Instructions Recorded Confirmed Type metformin 500 mg tablet 500 mg PO BID 05/09/25 05/09/25 History Patient History Medical History Diabetes mellitus Social History Smoking Status: Unknown if ever smoked Hx Alcohol Use: No Hx Substance Use: No Preferred Language: Cuban Communication Ability: Effective Communication Tools: IPad Supervisor Sterile Processing Required: Yes Beliefs That Will Affect Care: None Current Living Situation: Family Feels Safe at Home: Yes Assistive Devices: None Review of Systems ROS all negative except for Left ankle pain Physical Exam NA Results & Data Vital Signs (Past 12 Hours) Vital Signs Temp Pulse Pulse Resp BP Pulse Ox Pulse Ox 05/11/25 11:51 36.9 C 104 H 18 114/89 98 05/11/25 08:30 37.0 C 90 16 113/76 98 05/11/25 07:56 05/11/25 03:03 88 93 O2 Del Method O2 Del Method O2 Flow Rate 05/11/25 11:51 Room Air 05/11/25 08:30 Room Air 05/11/25 07:56 Room Air 05/11/25 03:03 Nasal Cannula 2 Laboratory Results Blood culture on 05/09/2025 (+) MRSA in 2/4 bottles Left Ankle culture on 05/09/2025 Aero/Yuridia Cult Preliminary 05/11/25-1112 Organism 1 Staph aureus MRSA Quantity Many Sens Sensitivities to Follow +MixWound Plus Low Counts of Probable Skin Regi Organism 2 Enterobacter cloacae complex Quantity Moderate Sens Sensitivities to Follow MRSA Entclo cpx RX M.I.C. RX M.I.C. --- --------- --- --------- Amikacin S <=16 Cefepime S <=2 Cefotaxime S <=2 Ceftriaxone S <=1 Ceftriaxone S Ciprofloxacin S <=0.25 Clindamycin S <=0.25 Daptomycin S <=0.5 Ertapenem S <=0.5 Erythromycin R >4 Gentamicin S <=2 Levofloxacin S <=0.5 Linezolid S 2 Meropenem S <=1 Oxacillin R >2 Rifampin S <=1 Tetracycline S <=4 Tobramycin S <=2 Trimeth/Sulfa S <=0.5/9.5 S <=0.5/9.5 Pip/Tazo S <=8 Vancomycin S 1 Enterobacter cloacae complex: Negative ASIM 56 May acquire resistance over the course of therapy S = SENSITIVE I = INTERMEDIATE R = RESISTANT 05/09/25 21:04 Gram Stain - Final Ankle,Left Aerobic and Anaerobic Culture - Preliminary Staph aureus MRSA Enterobacter cloacae complex 05/11/25 10:44 Aerobic Blood Culture - Pending Blood Anaerobic Blood Culture - Pending 05/11/25 10:33 Aerobic Blood Culture - Pending Blood Anaerobic Blood Culture - Pending 05/09/25 21:04 Aerobic Blood Culture - Preliminary Blood No growth in Aerobic bottle after 24 hours. Anaerobic Blood Culture - Preliminary Staphylococcus aureus 05/09/25 Unknown Aerobic Blood Culture - Preliminary Blood No growth in Aerobic bottle after 24 hours. Anaerobic Blood Culture - Preliminary Staphylococcus aureus 05/11/25 05/11/25 05/11/25 11:36 05:54 05:30 WBC 6.97 RBC 4.67 L Hgb 12.4 L Hct 37.9 L MCV 81.2 MCH 26.6 MCHC 32.7 RDW Std Deviation 42.0 RDW Coeff of Yoseph 14.3 Plt Count 288 MPV 9.5 Sodium 138 Potassium 4.4 Chloride 105 Carbon Dioxide 26 Anion Gap 7 BUN 17 Creatinine 1.05 Est Cr Clr Drug Dosing 91.3 eGFR 88.66 BUN/Creatinine Ratio 16.2 Glucose 127 H POC Glucose 115 H 122 H Estimat Average Glucose Hemoglobin A1c Calcium 8.9 Random Vancomycin 7.9 L Staphylococcus sp PCR Staph aureus (PCR) mecA/C & MREJ Resist Gene Bld Cult ID Panel PCR 05/10/25 05/10/25 05/10/25 20:39 16:18 07:08 WBC RBC Hgb Hct MCV MCH MCHC RDW Std Deviation RDW Coeff of Yoseph Plt Count MPV Sodium Potassium Chloride Carbon Dioxide Anion Gap BUN Creatinine Est Cr Clr Drug Dosing eGFR BUN/Creatinine Ratio Glucose POC Glucose 103 H 99 Estimat Average Glucose 128 Hemoglobin A1c 6.1 H Calcium Random Vancomycin Staphylococcus sp PCR Staph aureus (PCR) mecA/C & MREJ Resist Gene Bld Cult ID Panel PCR 05/09/25 Unknown WBC RBC Hgb Hct MCV MCH MCHC RDW Std Deviation RDW Coeff of Yoseph Plt Count MPV Sodium Potassium Chloride Carbon Dioxide Anion Gap BUN Creatinine Est Cr Clr Drug Dosing eGFR BUN/Creatinine Ratio Glucose POC Glucose Estimat Average Glucose Hemoglobin A1c Calcium Random Vancomycin Staphylococcus sp PCR DETECTED A Staph aureus (PCR) DETECTED A mecA/C & MREJ Resist Gene MRSA DETECTED A* Bld Cult ID Panel PCR See PCR Comment Diagnostic Findings CT LLE on 05/10/2025 MPRESSION: There is diffuse circumferential fat stranding and soft tissue swelling throughout the included distal calf, ankle and dorsum of the foot. No obvious loculated fluid collection, accounting for limitations. No tracking subcutaneous emphysema, to suggest necrotizing fasciitis. Extensive postoperative changes, as noted above. No acute osseous abnormality suspected. Medications Administered Home Medications Medication Instructions Recorded Confirmed Last Taken metformin 500 mg tablet 500 mg PO BID 05/09/25 05/09/25 05/09/25 Active Medications Generic Name Dose Route Start Last Admin Trade Name Freq PRN Reason Stop Dose Admin Acetaminophen 650 mg 05/10/25 00:56 05/10/25 21:37 Acetaminophen 325 Mg Tab PO 06/09/25 00:55 650 mg Q4H PRN Administration pain/fever Enoxaparin Sodium 40 mg 05/10/25 00:56 05/10/25 23:39 Enoxaparin Inj 40 Mg/0.4 Ml Syr SQ 06/09/25 00:55 Not Given Q24H KANDIS Cefepime HCl 2,000 mg in 20 mls @ 5 mls/min 05/10/25 08:00 05/11/25 08:33 Maxipime 2000mg IV 05/17/25 07:59 5 mls/min Q8H KANDIS Administration Protocol Lactated Ringer's 1,000 mls @ 15 mls/hr 05/11/25 12:00 05/11/25 12:22 Lr IV 05/14/25 11:59 Infused .Q24H KANDIS Infusion Insulin Aspart 0 units 05/11/25 06:00 05/11/25 05:58 Insulin Aspart Per Unit Charge SC 06/10/25 05:59 Not Given Q6 KANDIS Pt is also on Vancomycin IV. ECG Additional Comments: EKG on 05/09/2025 Vent. Rate : 95 BPM Atrial Rate : 95 BPM P-R Int : 158 ms QRS Dur : 80 ms QT Int : 340 ms P-R-T Axes : 35 10 21 degrees QTcB Int : 427 ms Normal sinus rhythm Normal ECG No previous ECGs available (2) 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
--- NOTE | 2025-05-11 13:07 | Post Operative Brief Note ---
Immediate Post Op Note Date of Surgery May 11, 2025 Pre & Post Diagnosis Preoperative diagnosis: Left ankle abscess/cellulitis Postoperative diagnosis: Left tibial osteomyelitis and infected orthopedic hardware I identified the patient and participated in the time-out.: Yes Procedure 1. Left tibial bone biopsy 2. Removal of deep orthopedic hardware Surgeon Thuan Wadsworth, DPM High Speed Printer Operator None Estimated Blood Loss 10 Findings Consistent with Post-Op Diagnosis Left ankle wound extended immediately to the medial plate of his prior open reduction internal fixation. A separate lag screw noted posterior to this was able to be removed as it was significantly loosened with purulence surrounding it. Surrounding bone and tissue were sent for pathology and cultures. Specimens Left tibial bone and hardware sent for pathology Left tibial bone tissue sent for culture Separate swab of the hardware was sent for culture Anesthesia Type MAC Complications none Disposition Accompanied Patient To Recovery: Yes Disposition: Recovery Room
[2025-05-11] MEDS: BUPIVACAINE 0.5 % 5 MG/1 ML MPF 30ML VIAL ONE (13:21)
--- NOTE | 2025-05-11 13:30 | Anesthesiology Progress Note ---
Date of Service May 11, 2025 Anesthesia Post Procedure Vital Signs Vital Signs: Temp Pulse Pulse Pulse Pulse Resp BP 05/11/25 13:20 95 H 18 128/90 05/11/25 13:10 36.3 C L 96 H 18 122/90 05/11/25 11:51 36.9 C 104 H 18 114/89 05/11/25 08:30 37.0 C 90 16 113/76 05/11/25 07:56 05/11/25 03:03 88 05/11/25 00:31 87 05/10/25 23:04 37.4 C 101 H 18 145/75 H 05/10/25 21:00 102 H 05/10/25 15:45 37.6 C H 99 H 18 146/92 H Pulse Ox Pulse Ox Pulse Ox O2 Del Method O2 Del Method O2 Del Method O2 Flow Rate 05/11/25 13:20 99 Room Air 05/11/25 13:10 98 Room Air 05/11/25 11:51 98 Room Air 05/11/25 08:30 98 Room Air 05/11/25 07:56 Room Air 05/11/25 03:03 93 Nasal Cannula 2 05/11/25 00:31 95 Nasal Cannula 2 05/10/25 23:04 95 Room Air 05/10/25 21:00 96 Room Air 05/10/25 15:45 98 Room Air Transfer of Care Handoff Completed per policy Notes Mental Status: alert / awake / arousable Patient Amnestic to Procedure: Yes Nausea / Vomiting: adequately controlled Pain: adequately controlled Airway Patency, RR, SpO2: stable & adequate BP & HR: stable & adequate Hydration State: stable & adequate Anesthetic Complications: no major complications apparent
--- NOTE | 2025-05-11 15:36 | Hospitalist Progress Note ---
Date of Service May 11, 2025 Assessment & Plan (1) MRSA bacteremia: (2) Infected hardware in left lower extremity: (3) Osteomyelitis of ankle, left, acute: (4) Diabetes mellitus: Plan Patient with MRSA bacteremia and MRSA and Enterobacter cellulitis/osteomyelitis of the left ankle. Reviewed operative report, hardware removed along with I&D. Reviewed infectious disease consultation, recommending continuing cefepime and vancomycin Surveillance blood cultures obtained this morning, continue to monitor Echocardiogram ordered Monitor glucose and cover with insulin sliding scale Pain control Informed patient that I anticipate he will need prolonged IV antibiotics. He he expressed understanding and will be compliant with plans for outpatient antibiotics as arranged Case management to help coordinate home antibiotics. Admission and Anticipated Discharge Date Admission Date: May 10, 2025 Subjective Patient seen prior to going to the operating room. Overall pain is controlled. Physical Exam Physical Exam: Constitutional: Alert, nontoxic HEENT: Mucous membranes moist. Lungs: Clear to auscultation, decreased, no wheezes rales or rhonchi CV: S1-S2, regular Abdomen: Soft, nontender, nondistended Extremities: left lower extremity appears less erythematous, a little less swollen, purulent discharge seen on dressing Neuro: No focal deficits Psych: Cooperative, normal mood Results & Data Results & Data Vital Signs (Past 12 Hours) Vital Signs Temp Pulse Pulse Resp BP Pulse Ox O2 Del Method 05/11/25 14:50 36.7 C 89 17 132/84 96 Room Air 05/11/25 14:20 37.0 C 94 H 16 128/81 95 Room Air 05/11/25 14:00 36.7 C 92 H 18 119/83 98 Room Air 05/11/25 13:30 36.4 C L 05/11/25 13:20 95 H 18 128/90 99 Room Air 05/11/25 13:10 36.3 C L 96 H 18 122/90 98 Room Air 05/11/25 11:51 36.9 C 104 H 18 114/89 98 Room Air 05/11/25 08:30 37.0 C 90 16 113/76 98 Room Air 05/11/25 07:56 Room Air Diagnostic Findings Reviewed imaging, laboratory and diagnostic studies. Pertinent findings as below. WBC 6.9 Hemoglobin 12.4 Electrolytes stable Creatinine 1.0 Reviewed blood and wound culture (2) 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
[2025-05-11] MEDS ORDERED: KETOROLAC 30 MG/ML VIAL IV PRN (15:39)
[2025-05-11] MEDS: VANCOMYCIN HCL / NSS 1,000 MG/270 ML BAG IV SCH (16:41)
[2025-05-12 06:04] LABS: Hematocrit (blood only) 36.6 % (42.0-52.0); Hemoglobin 11.9 g/dl (14.0-18.0); Mean Corpuscular Hemoglobin 26.6 pg (25.0-34.0); Mean Corpuscular Volume 81.7 fL (80.0-100.0); Platelet Count 283 K/uL (130-400); RDW Standard Deviation 42.4 fL (36.4-46.3); Red Blood Count 4.48 M/uL (4.70-6.10); White Blood Count 5.53 K/ul (4.8-10.8)
[2025-05-12 06:25] LABS: Anion Gap 5.0 (3-11); Blood Urea Nitrogen 16.0 mg/dl (6-23); Calcium 8.4 mg/dl (8.6-10.3); Carbon Dioxide 26.0 mmol/L (21-32); Chloride 105.0 mmol/L (98-107); Creatinine Clr Calc Pharmacy 91.3 ml/min; Glucose 192.0 mg/dl (70-99(Fasting)); Potassium 4.7 mmol/L (3.5-5.1); Sodium 136.0 mmol/L (136-145)
--- NOTE | 2025-05-12 11:34 | Hospitalist Progress Note ---
Date of Service May 12, 2025 Assessment & Plan (1) MRSA bacteremia: (2) Infected hardware in left lower extremity: (3) Osteomyelitis of ankle, left, acute: (4) Diabetes mellitus: Plan Patient with MRSA bacteremia due to infected left ankle, osteomyelitis, infected hardware. Continue current antibiotic regimen as recommended by infectious disease. Continue to monitor surveillance blood cultures, if sterile at 48 hours can proceed with obtaining PICC consent and placing a PICC line for long-term antibiotics. I anticipate he will need a minimum of 6 weeks of IV antibiotics Continue to monitor glucose and managed with sliding scale insulin Communication with podiatry, patient able to weight-bear as tolerated in the boot. Admission and Anticipated Discharge Date Admission Date: May 10, 2025 Subjective No acute events overnight, pain is controlled. Visit conducted with assistance of interpreter for the deaf via phone Physical Exam Physical Exam: Constitutional: Alert, nontoxic HEENT: Mucous membranes moist. Lungs: Clear to auscultation, decreased, no wheezes rales or rhonchi CV: S1-S2, regular Abdomen: Soft, nontender, nondistended Extremities: Left lower extremity with César wrap around ankle postsurgical dressing. Clean and dry. Good sensation in the toes, swelling seems to be decreased. Neuro: No focal deficits Psych: Cooperative, normal mood Results & Data Results & Data Vital Signs (Past 12 Hours) Vital Signs Temp Pulse Pulse Resp BP Pulse Ox O2 Del Method 05/12/25 11:27 36.8 C 76 18 127/89 97 Room Air 05/12/25 08:16 37.1 C 93 H 18 114/48 L 100 Nasal Cannula 05/12/25 03:00 36.8 C 89 18 112/67 99 Nasal Cannula O2 Flow Rate 05/12/25 11:27 05/12/25 08:16 2 05/12/25 03:00 2 Diagnostic Findings Reviewed imaging, laboratory and diagnostic studies. Pertinent findings as below. WBCs 5.5 Hemoglobin 0.9 Electrolytes stable Creatinine 1.0 Initial wound culture growing MRSA and Enterobacter Initial blood cultures growing MRSA Surveillance blood cultures sterile at 24 hours (2) 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
--- NOTE | 2025-05-12 13:36 | XCELERA ---
[id number] [id number]
[2025-05-13 07:54] LABS: Creatinine Clr Calc Pharmacy 105.4 ml/min
[2025-05-13] MEDS: VANCOMYCIN LEVEL ONE (09:10)
--- NOTE | 2025-05-13 09:47 | Pharmacy Report ---
Pharmacy PK ABX Note - Date of Service May 13, 2025 - Assessment and Plan Assessment 05/13: Day # 5 vancomycin (+) cefepime for MRSA bacteremia and L tibial osteomyelitis with infected orthopedic hardware. 05/09 blood cultures (+) MRSA in 2/. 05/09 ankle culture (+) MRSA and E. cloacae. 05/11 tibial bone culture (+) S. aureus pending sensitivities. Renal function stable. ID consulted. 05/11: 44 year old M receiving cefepime and vancomycin for treatment MRSA bacteremia secondary to left ankle osteomyelitis/surgical-site infection. Pertinent microbiologic data includes: blood cultures x 2 (05/09) growing Staphylococcus aureus (MRSA per biofire), left ankle (05/09) growing Staphylococcus aureus and Enterobacter cloacae complex . Sensitivities still pending. * 7 surgeries on left ankle in past three years * Last surgery was 10/2024 and was on antibiotics until about three weeks ago for infection * Presents to the hospital 05/09 evening with chills, fever, swelling, and drainage from surgical wound * Renal function has remained reasonably stable, will continue to monitor * TTE ordered to assess for IE, test not yet performed * Infectious diseases consulted Plan Vancomycin * Current regimen: 1000mg IV q8h * Trough this AM (~7h level), 10.9mcg/mL- predicted to achieve ssAUC 431mg/L.hr with 70% probability. * Increase dose to 1250mg IV every 8 hours * Predicted AUC at steady state: 537 mg/L.hr * Repeat level 05/15 Pharmacy will continue to follow and will adjust dose/frequency as necessary. Thank you. Pharmacy has transitioned to AUC monitoring for vancomycin. AUC/ASIM is the preferred PK/PD target and is associated with decreased risk of nephrotoxicity compared to traditional trough targets.
--- NOTE | 2025-05-13 16:17 | Hospitalist Progress Note ---
Date of Service May 13, 2025 Assessment & Plan (1) MRSA bacteremia: (2) Infected hardware in left lower extremity: (3) Osteomyelitis of ankle, left, acute: (4) Diabetes mellitus: Plan Mr. Ryan is a 44-year-old male Romansh-speaking patient with past med history significant for diabetes, history of multiple surgeries to left ankle presents with infection of the left ankle site admitted for left ankle infection. Patient reports that he has no insurance. Blood cultures and hardware with MRSA infection. #MRSA bacteremia #Left ankle osteomyelitis and hardware infection blood cultures +MRSA 05/09, negative 05/11 ankle +MRSA and enterococcus Plan to discucss with ID final abx regimen Plan for PICC once dispo plan clarified with ID and Case management as patient does not have insurance biopsy from 05/11 pending continue vanc/cefepime for now wbat with crutches on lle #Diabetes a1c 6.1% controlled Hold metformin Insulin sliding scale #Hypoxia Oxygen sats dropping while sleeping nocturnal pulse ox study an hour <89% sleep study as out patient. DVT prophylaxis Lovenox for now Admission and Anticipated Discharge Date Admission Date: May 10, 2025 Subjective Ipad Physical Science Professor service utilized Patient states he is feeling fine today Reports that his lives in the area, so he would be able to stay in this area for IV abx does not have insurance denies any pain, fevers, chills or other concerns reports all questions answered, verbalized understanding of plan for prolonged abx Physical Exam Constitutional: WD/WN, vitals as above Respiratory: normal respiratory effort, lungs clear to auscultation Cardiovascular: RRR, no murmur, no edema Gastrointestinal (Abdomen): normal bowel sounds, soft, nontender, no hepatosplenomegaly Musculoskeletal: left ankle in clean dressing and tahmina bandage Results & Data Results & Data Vital Signs (Past 12 Hours) Vital Signs Temp Pulse Resp BP Pulse Ox O2 Del Method 05/13/25 13:57 36.7 C 81 18 113/79 98 Room Air 05/13/25 07:29 36.9 C 78 16 105/69 98 Room Air Laboratory Results [facility] 05/13/25 07:10 Creatinine 0.91 Medications Administered Home Medications Medication Instructions Recorded Confirmed Last Taken metformin 500 mg tablet 500 mg PO BID 05/09/25 05/09/25 05/09/25 Active Medications Generic Name Dose Route Start Last Admin Trade Name Freq PRN Reason Stop Dose Admin Acetaminophen 650 mg 05/10/25 00:56 05/11/25 21:36 Acetaminophen 325 Mg Tab PO 06/09/25 00:55 650 mg Q4H PRN Administration pain/fever Enoxaparin Sodium 40 mg 05/10/25 00:56 05/13/25 00:25 Enoxaparin Inj 40 Mg/0.4 Ml Syr SQ 06/09/25 00:55 40 mg Q24H KANDIS Administration Cefepime HCl 2,000 mg in 20 mls @ 5 mls/min 05/10/25 08:00 05/13/25 09:16 Maxipime 2000mg IV 05/17/25 07:59 5 mls/min Q8H KANDIS Administration Protocol Insulin Aspart 0 units 05/11/25 16:30 05/13/25 12:15 Insulin Aspart Per Unit Charge SC 06/10/25 16:29 2 units ACHS KANDIS Administration (2) 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
[2025-05-13] MEDS: VANCOMYCIN HCL 1,250 MG in SODIUM CHLORIDE 0.9% 250 ML IV SCH (16:21)
[2025-05-14 09:29] LABS: Creatinine Clr Calc Pharmacy 107.8 ml/min
--- NOTE | 2025-05-14 13:52 | Hospitalist Progress Note ---
Date of Service May 14, 2025 Assessment & Plan (1) MRSA bacteremia: (2) Infected hardware in left lower extremity: (3) Osteomyelitis of ankle, left, acute: (4) Diabetes mellitus: Plan Mr. Ryan is a 44-year-old male Tamazight-speaking patient with past med history significant for diabetes, history of multiple surgeries to left ankle presents with infection of the left ankle site admitted for left ankle infection. Patient reports that he has no insurance. Blood cultures and hardware with MRSA infection. #MRSA bacteremia #Left ankle osteomyelitis and hardware infection blood cultures +MRSA 05/09, negative 05/11 ankle +MRSA and enterococcus Plan to discuss with ID final abx regimen -TT with Dr. Garay: continue vanco/cefe for 6 weeks, 06/22. -after IV abx, patient to transition to indefinite PO suppression with doxycycline 100mg bid and cipro 500mg bid, unless hardware removed -Patient to start rifampin 300mg bid for 3months Plan for PICC once dispo plan clarified biopsy from 05/11 pending wbat with crutches on lle podiatry following, W2D dressings while admitted Plan to engage with Ortho -Patient high risk with hardware in place and lack of insurance--concern for coverage and ability to follow up in [place], will discuss more with patient tomorrow #Diabetes a1c 6.1% controlled Hold metformin Insulin sliding scale #Hypoxia Oxygen sats dropping while sleeping nocturnal pulse ox study an hour <89% sleep study as out patient. DVT prophylaxis Lovenox for now Admission and Anticipated Discharge Date Admission Date: May 10, 2025 Subjective Ipad Paper Machine Backtender service utilized Patient states he is feeling ok, states he is happy with whereever he gets the abx as long as he can get them. He does not wish to lose his foot Patient denies any new concerns today, handouts in [employer] given explaining PICC and his abx regimen for review, patient verbalized understanding and reports he will review so it can be discussed in further detail tomorrow Physical Exam Constitutional: WD/WN, vitals as above Respiratory: normal respiratory effort, lungs clear to auscultation Cardiovascular: RRR, no murmur, no edema Gastrointestinal (Abdomen): normal bowel sounds, soft, nontender, no hepatosplenomegaly Results & Data Results & Data Vital Signs (Past 12 Hours) Vital Signs Temp Pulse Resp BP Pulse Ox O2 Del Method 10/27/25 07:06 36.3 C L 81 16 134/80 94 Room Air Laboratory Results [facility] 05/14/25 08:44 Creatinine 0.89 Medications Administered Home Medications Medication Instructions Recorded Confirmed Last Taken metformin 500 mg tablet 500 mg PO BID 05/09/25 05/09/25 05/09/25 Active Medications Generic Name Dose Route Start Last Admin Trade Name Freq PRN Reason Stop Dose Admin Acetaminophen 650 mg 05/10/25 00:56 05/11/25 21:36 Acetaminophen 325 Mg Tab PO 06/09/25 00:55 650 mg Q4H PRN Administration pain/fever Enoxaparin Sodium 40 mg 05/10/25 00:56 05/14/25 00:31 Enoxaparin Inj 40 Mg/0.4 Ml Syr SQ 06/09/25 00:55 40 mg Q24H KANDIS Administration Cefepime HCl 2,000 mg in 20 mls @ 5 mls/min 05/10/25 08:00 05/14/25 16:02 Maxipime 2000mg IV 05/17/25 07:59 5 mls/min Q8H KANDIS Administration Protocol Vancomycin HCl 1,250 mg/ 275 mls @ 200 mls/hr 05/13/25 16:00 05/14/25 16:01 Sodium Chloride IV 05/25/25 15:59 200 mls/hr Q8H KANDIS Administration Insulin Aspart 0 units 05/11/25 16:30 05/14/25 12:20 Insulin Aspart Per Unit Charge SC 06/10/25 16:29 2 units ACHS KANDIS Administration Rifampin 300 mg 05/14/25 09:00 05/14/25 10:14 Rifampin 300 Mg Capsule PO 06/13/25 08:59 300 mg BID KANDIS Administration (2) 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
--- NOTE | 2025-05-14 20:58 | Podiatry Progress Note ---
Date of Service May 14, 2025 Assessment & Plan (1) Osteomyelitis of ankle, left, acute: (2) Infected hardware in left lower extremity: (3) MRSA bacteremia: (4) Infected surgical wound: Plan Patient was examined and evaluated. Discussed his care at length with scientific diver videoconferenced in. - Patient has chronic osteomyelitis with infected hardware, based clinically on ulceration probing to and visualizing tibial bone. Confirmed on pathology with bone biopsy results. - Screw removed was most likely part of the IM Nail construct, as it was posterior to the medial plating construct. Plain film imaging ordered to confirm this was the screw removed. - Recommend daily wound care while here, consisting of betadine wet to dry dressings for now; advanced/invasive wound care will not be as beneficial until hardware removal or permanent surgical correction is obtained. - Will continue to follow; would defer to ID for long wall mining machine tender antibiosis in order for him to safely return home for definitive orthopedic care. Admission and Anticipated Discharge Date Admission Date: May 10, 2025 Subjective Patient seen at bedside around lunchtime. Denies new complaints. Is feeling good here on antibiotics. No pain to left lower extremity. States his swelling is comind down and improved from admission. Review of Systems Constitutional: + fever, + chills, + fatigue and + weakn ess Eyes: no problem reported Ear, Nose, Mouth, Throat: no problem reported Respiratory: no problem reported Cardiovascular: + edema; no problem reported Gastrointestinal: + nausea; no vomiting and no problem rep orted Musculoskeletal: + joint pain, + deformity and + limited range of motion Integumentary: + skin ulcer, + wounds and + erythema Neurologic: + loss of sensation, + numbness and + pa resthesia; no generalized weakness Psychiatric: no problem reported Physical Exam Physical Exam: Lower extremity physical exam: DP/PT pulses 2/4 bilateral. CFT brisk to the digits. Diffuse scarring and hemosiderin deposition to the left lower extremity with multiple surgical scars to the leg from the knee distally. Distal retention sutures intact to surgical site; proximal ulceration remains with continued probing. Packing removed uneventfully. Edema is diminished. Erythema is improved. No neville purulence or active bleeding noted. Constitutional: WD/WN, vitals as above + ill appearing and + obese; no acute distress Eyes: PERRL, conjunctivae normal, anicteric sclerae ENMT: external ear and nose normal, oropharynx normal Neck: trachea midline, no thyromegaly normal visual inspection Respiratory: normal respiratory effort; no respiratory distress Cardiovascular: Rate/Rhythm: regular rate and regular rhythm Vessels: posterior tibial pulses present and dorsalis pedis pulses present Chest (Breasts): Chest: normal inspection of chest Gastrointestinal (Abdomen): Inspection/Auscultation: abdomen normal to inspection Percussion/Palpation: + abdomen tender and abdomen soft Musculoskeletal: no cyanosis or clubbing, extremities motor strength 5/5 Head/Neck/Chest: normocephalic and head atraumatic Extremities: extremities normal to inspection Ankle: + deformity, + skin erythema, + limited ROM of ankle and + ankle ROM with crepitation Skin: + ulcer, + induration, + wound and + felicita thema Neurologic: awake; + abnormal touch/pain/proprioception, + abnormal sensation to monofilament and no focal motor deficits Psychiatric: A+Ox3, euthymic affect Results & Data Results & Data Vital Signs (Past 12 Hours) Vital Signs Temp Pulse Resp BP Pulse Ox O2 Del Method 05/14/25 14:38 36.8 C 83 16 125/70 97 Room Air (2) 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
[2025-05-15] MEDS: VANCOMYCIN LEVEL ONE (07:26)
[2025-05-15 07:53] LABS: Hematocrit (blood only) 38.9 % (42.0-52.0); Hemoglobin 12.9 g/dl (14.0-18.0); Mean Corpuscular Hemoglobin 26.5 pg (25.0-34.0); Mean Corpuscular Volume 79.9 fL (80.0-100.0); Platelet Count 373 K/uL (130-400); RDW Standard Deviation 40.7 fL (36.4-46.3); Red Blood Count 4.87 M/uL (4.70-6.10); White Blood Count 4.42 K/ul (4.8-10.8)
[2025-05-15 08:08] LABS: Anion Gap 8.0 (3-11); Blood Urea Nitrogen 22.0 mg/dl (6-23); Calcium 9.5 mg/dl (8.6-10.3); Carbon Dioxide 28.0 mmol/L (21-32); Chloride 102.0 mmol/L (98-107); Creatinine Clr Calc Pharmacy 95.9 ml/min; Glucose 130.0 mg/dl (70-99(Fasting)); Magnesium 2.1 mg/dl (1.7-2.4); Potassium 4.7 mmol/L (3.5-5.1); Sodium 138.0 mmol/L (136-145)
--- NOTE | 2025-05-15 14:14 | Pharmacy Report ---
Pharmacy PK ABX Note - Date of Service May 15, 2025 - Assessment and Plan Assessment 05/15: * Vancomycin level came back therapeutic at ~17 mg/ml - current regimen associated with goal AUC/ASIM therefore will continue same dosing 05/13: Day # 5 vancomycin (+) cefepime for MRSA bacteremia and L tibial osteomyelitis with infected orthopedic hardware. 05/09 blood cultures (+) MRSA in 2/. 05/09 ankle culture (+) MRSA and E. cloacae. 05/11 tibial bone culture (+) S. aureus pending sensitivities. Renal function stable. ID consulted. 05/11: 44 year old M receiving cefepime and vancomycin for treatment MRSA bacteremia secondary to left ankle osteomyelitis/surgical-site infection. Pertinent microbiologic data includes: blood cultures x 2 (05/09) growing Staphylococcus aureus (MRSA per biofire), left ankle (05/09) growing Staphylococcus aureus and Enterobacter cloacae complex . Sensitivities still pending. * 7 surgeries on left ankle in past three years * Last surgery was 10/2024 and was on antibiotics until about three weeks ago for infection * Presents to the hospital 05/09 evening with chills, fever, swelling, and drainage from surgical wound * Renal function has remained reasonably stable, will continue to monitor * TTE ordered to assess for IE, test not yet performed * Infectious diseases consulted Plan Vancomycin * Continue 1250mg IV every 8 hours Pharmacy will continue to follow and will adjust dose/frequency as necessary. Thank you. Pharmacy has transitioned to AUC monitoring for vancomycin. AUC/ASIM is the preferred PK/PD target and is associated with decreased risk of nephrotoxicity compared to traditional trough targets.
--- NOTE | 2025-05-15 17:38 | Hospitalist Progress Note ---
Date of Service May 15, 2025 Assessment & Plan (1) MRSA bacteremia: (2) Infected hardware in left lower extremity: (3) Osteomyelitis of ankle, left, acute: (4) Diabetes mellitus: Plan Mr. Ryan is a 44-year-old male Solomon Islander-speaking patient with past med history significant for diabetes, history of multiple surgeries to left ankle presents with infection of the left ankle site admitted for left ankle infection. Patient reports that he has no insurance. Blood cultures and hardware with MRSA infection. Patient will require IV antibiotics for 6 weeks and indefinite suppression until hardware removed. Admission prolonged 2/2 insurance concerns and dispo planning. #MRSA bacteremia #Left ankle osteomyelitis and hardware infection blood cultures +MRSA 05/09, negative 05/11 ankle +MRSA and enterococcus Plan to discuss with ID final abx regimen -TT with Dr. Garay: continue vanco/cefe for 6 weeks, 06/22. -after IV abx, patient to transition to indefinite PO suppression with doxycycline 100mg bid and cipro 500mg bid, unless hardware removed -continue rifampin 300mg bid for 3months Plan for PICC once dispo plan clarified biopsy from 05/11 pending wbat with crutches on lle podiatry following, W2D dressings while admitted patient would like [place] #Diabetes a1c 6.1% controlled Hold metformin Insulin sliding scale #Hypoxia Oxygen sats dropping while sleeping nocturnal pulse ox study an hour <89% sleep study as out patient. DVT prophylaxis Lovenox for now Admission and Anticipated Discharge Date Admission Date: May 10, 2025 Subjective used interpreter and translator services patient reports he is doing well and without any acute concerns states he is eating well discussed holding off on PICC until dispo plan clarified Physical Exam Constitutional: WD/WN, vitals as above Respiratory: normal respiratory effort, lungs clear to auscultation Cardiovascular: RRR, no murmur, no edema Gastrointestinal (Abdomen): normal bowel sounds, soft, nontender, no hepatosplenomegaly Results & Data Results & Data Vital Signs (Past 12 Hours) Vital Signs Temp Pulse Resp BP Pulse Ox O2 Del Method 05/15/25 16:03 36.7 C 96 H 16 126/83 95 Room Air 05/15/25 07:29 36.4 C L 79 16 128/85 97 Room Air 05/15/25 07:25 Room Air (2) 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
[2025-05-16 08:31] LABS: Hematocrit (blood only) 37.3 % (42.0-52.0); Hemoglobin 12.6 g/dl (14.0-18.0); Mean Corpuscular Hemoglobin 26.7 pg (25.0-34.0); Mean Corpuscular Volume 79.0 fL (80.0-100.0); Platelet Count 380 K/uL (130-400); RDW Standard Deviation 40.5 fL (36.4-46.3); Red Blood Count 4.72 M/uL (4.70-6.10); White Blood Count 5.29 K/ul (4.8-10.8)
[2025-05-16 08:47] LABS: Anion Gap 6.0 (3-11); Blood Urea Nitrogen 22.0 mg/dl (6-23); Calcium 9.0 mg/dl (8.6-10.3); Carbon Dioxide 29.0 mmol/L (21-32); Chloride 103.0 mmol/L (98-107); Creatinine Clr Calc Pharmacy 97.9 ml/min; Glucose 136.0 mg/dl (70-99(Fasting)); Magnesium 2.1 mg/dl (1.7-2.4); Potassium 4.4 mmol/L (3.5-5.1); Sodium 138.0 mmol/L (136-145)
--- NOTE | 2025-05-16 15:20 | Podiatry Progress Note ---
Date of Service May 16, 2025 Assessment & Plan (1) Osteomyelitis of ankle, left, acute: (2) Infected hardware in left lower extremity: (3) MRSA bacteremia: (4) Infected surgical wound: Plan Patient was examined and evaluated. Discussed his care at length with lever operator videoconferenced in. - Patient has chronic osteomyelitis with infected hardware, based clinically on ulceration probing to and visualizing tibial bone. Confirmed on pathology with bone biopsy results. - Screw removed was most likely part of the IM Nail construct; Mobile x-ray is here waiting to take these new x-rays after this clinical exam - We again discussed that more definitive hardware removal was not performed here because of his insistence, preoperatively, to have the surgery performed by his hometown surgeon after discharge. We discussed that this surgical intervention was to improve or decrease the acute infectious burden but was in no way definitive. - We did discuss that if he is interested in having the more definitive surgical intervention performed here, this could include hardware removal and potential need for revision. With his out of state medical assistance insurance, this could be significantly expensive. - Either way, with the presence of this IM nail, he would require orthopedics input for this procedure. - For now, pending any abnormal findings on radio graphs, we will sign off as there is no further surgical events required from the foot and ankle. We would recommend sticking with the initial plan of discharging home with antibiotics to cover him returning to his home state for more definitive care. Admission and Anticipated Discharge Date Admission Date: May 10, 2025 Subjective Patient seen at bedside with the help of lever operator services. He denies any new pain or symptoms of infection. He states the surgical site feels well. He is currently more interested in definitive hardware removal and is unsure why all of the hardware was not removed last week. Otherwise, he is a new questions. He believes he is still pending insurance approval for his IV antibiotics prior to discharge. Review of Systems Constitutional: no fever and no chills Eyes: no problem reported Ear, Nose, Mouth, Throat: no problem reported Respiratory: no problem reported Cardiovascular: + edema; no problem reported Gastrointestinal: + nausea; no vomiting and no problem rep orted Musculoskeletal: + joint pain, + deformity and + limited range of motion Integumentary: + skin ulcer, + wounds and + erythema Neurologic: + loss of sensation, + numbness and + pa resthesia; no generalized weakness Psychiatric: no problem reported Physical Exam Physical Exam: Lower extremity physical exam: DP/PT pulses 2/4 bilateral. CFT brisk to the digits. Diffuse scarring and hemosiderin deposition to the left lower extremity with multiple surgical scars to the leg from the knee distally. Distal retention sutures intact to surgical site; proximal ulceration remains with continued probing. Edema is diminished. Erythema is improved. No neville purulence or active bleeding noted. Constitutional: WD/WN, vitals as above + ill appearing and + obese; no acute distress Eyes: PERRL, conjunctivae normal, anicteric sclerae ENMT: external ear and nose normal, oropharynx normal Neck: trachea midline, no thyromegaly normal visual inspection Respiratory: normal respiratory effort; no respiratory distress Cardiovascular: Rate/Rhythm: regular rate and regular rhythm Vessels: posterior tibial pulses present and dorsalis pedis pulses present Chest (Breasts): Chest: normal inspection of chest Gastrointestinal (Abdomen): Inspection/Auscultation: abdomen normal to inspection Percussion/Palpation: + abdomen tender and abdomen soft Musculoskeletal: no cyanosis or clubbing, extremities motor strength 5/5 Head/Neck/Chest: normocephalic and head atraumatic Extremities: extremities normal to inspection Ankle: + deformity, + skin erythema, + limited ROM of ankle and + ankle ROM with crepitation Skin: + ulcer, + induration, + wound and + felicita thema Neurologic: awake; + abnormal touch/pain/proprioception, + abnormal sensation to monofilament and no focal motor deficits Psychiatric: A+Ox3, euthymic affect Results & Data Results & Data Vital Signs (Past 12 Hours) Vital Signs Temp Pulse Resp BP Pulse Ox O2 Del Method 05/16/25 14:25 36.7 C 84 18 128/77 95 Room Air 05/16/25 07:13 36.7 C 79 16 119/83 96 Room Air (2) 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
--- NOTE | 2025-05-16 15:58 | XRay Report ---
XR ankle LT min 3V routine CLINICAL HISTORY: evaluate hardware COMPARISON: 05/09/2025 FINDINGS: There is stable resection of a portion of the shaft of the fibula. Visualized portion of t he tibial nail, plate screw fixation of the distal tibia, and talocalcaneal and hindfoot fusion hardw are shows no hardware complication. There is stable alignment at the incompletely healed distal tibia fracture. There is a partially healed osteotomy at the mid tibial shaft. No acute fracture or disloc ation seen. No evidence of osteomyelitis seen. IMPRESSION: Stable exam. No acute findings seen. ACT 112: Negative or not required by law. Electronically signed by: Harsh Schaefer M.D. 05/16/2025 3:57 PM
--- NOTE | 2025-05-16 18:10 | Hospitalist Progress Note ---
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 Ryan is a 44-year-old male Arabic-speaking patient with past med history significant for diabetes, history of multiple surgeries to left ankle presents with infection of the left ankle site admitted for left ankle infection. Patient reports that he has no insurance. Blood cultures and hardware with MRSA infection. Patient will require IV antibiotics for 6 weeks and indefinite suppression until hardware removed. Admission prolonged 2/2 insurance concerns and dispo planning. 65 minutes spent at bedside explaining course. Patient will likely remain admitted for IV abx for 6 weeks. Patient asked if we could transport him to [place] as he has insurance there. It was stated this is not likely to happen. He requested if he could be discharged so he can go check into the [facility] and continue his treatment there. It was stated that if he leaves it would be against medical advice because I would not be sending him with antibiotics and discharging to another hospital in that manner is not appropriate. Patient states he does eventually want to come here, and had questions about if he gets medicaid here will he lose it in [place]. It was stated that this writer editor was unclear in that detail, but will ask case management. If insurance in [place] disappears, patient will not be able to get the hardware removed. Patient had many questions about the hardware removal. It was reported that Orthopedics may be best and perhaps consulting and speaking with them can help with the patient's plans for the future. Patient agreed to this plan. #MRSA bacteremia #Left ankle osteomyelitis and hardware infection blood cultures +MRSA 05/09, negative 05/11 ankle +MRSA and enterococcus Plan to discuss with ID final abx regimen -TT with Dr. Garay: continue vanco/cefe for 6 weeks, 06/22. -after IV abx, patient to transition to indefinite PO suppression with doxycycline 100mg bid and cipro 500mg bid, unless hardware removed -continue rifampin 300mg bid for 3months Plan for PICC once dispo plan clarified biopsy from 05/11 pending wbat with crutches on lle podiatry following, W2D dressings while admitted orthopedics consult in morning for discussion of hardware removal #Diabetes a1c 6.1% controlled Hold metformin Insulin sliding scale #Hypoxia Oxygen sats dropping while sleeping nocturnal pulse ox study an hour <89% sleep study as out patient. DVT prophylaxis Lovenox for now Admission and Anticipated Discharge Date Admission Date: May 10, 2025 Subjective NAEO Blood Bank Custodian service used Patient reports conflict with returning to [place], would like to discuss with ortho more details Patient denies any fevers, pain or other acute concerns Physical Exam Constitutional: WD/WN, vitals as above Respiratory: normal respiratory effort, lungs clear to auscultation Cardiovascular: RRR, no murmur, no edema Gastrointestinal (Abdomen): normal bowel sounds, soft, nontender, no hepatosplenomegaly Results & Data Results & Data Vital Signs (Past 12 Hours) Vital Signs Temp Pulse Resp BP Pulse Ox O2 Del Method 05/16/25 14:25 36.7 C 84 18 128/77 95 Room Air 05/16/25 07:13 36.7 C 79 16 119/83 96 Room Air Laboratory Results Short CBC 05/16/25 Range/Units 08:09 WBC 5.29 (4.8-10.8) K/ul Hgb 12.6 L (14.0-18.0) g/dl Hct 37.3 L (42.0-52.0) % Plt Count 380 (130-400) K/uL BMP 05/16/25 08:09 Sodium 138 Potassium 4.4 Chloride 103 Carbon Dioxide 29 BUN 22 Creatinine 0.98 Glucose 136 H Calcium 9.0 Medications Administered Home Medications Medication Instructions Recorded Confirmed Last Taken metformin 500 mg tablet 500 mg PO BID 05/09/25 05/09/25 05/09/25 Active Medications Generic Name Dose Route Start Last Admin Trade Name Laloq PRN Reason Stop Dose Admin Acetaminophen 650 mg 05/10/25 00:56 05/11/25 21:36 Acetaminophen 325 Mg Tab PO 06/09/25 00:55 650 mg Q4H PRN Administration pain/fever Enoxaparin Sodium 40 mg 05/10/25 00:56 05/16/25 00:17 Enoxaparin Inj 40 Mg/0.4 Ml Syr SQ 06/09/25 00:55 40 mg Q24H KANDIS Administration Cefepime HCl 2,000 mg in 20 mls @ 5 mls/min 05/10/25 08:00 05/16/25 17:49 Maxipime 2000mg IV 06/24/25 07:59 5 mls/min Q8H KANDIS Administration Protocol Vancomycin HCl 1,250 mg/ 275 mls @ 200 mls/hr 05/13/25 16:00 05/16/25 17:49 Sodium Chloride IV 06/27/25 15:59 Infused Q8H KANDIS Infusion Insulin Aspart 0 units 05/11/25 16:30 05/16/25 17:18 Insulin Aspart Per Unit Charge SC 06/10/25 16:29 4 units ACHS KANDIS Administration Rifampin 300 mg 05/14/25 09:00 05/16/25 08:58 Rifampin 300 Mg Capsule PO 08/12/25 08:59 300 mg BID KANDIS Administration (2) 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
--- NOTE | 2025-05-17 17:18 | Discharge Summary ---
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 Ryan is a 44-year-old male Portuguese-speaking patient with past med history significant for diabetes, history of multiple surgeries to left ankle presents with infection of the left ankle site admitted for left ankle infection. Initial wound cultures revealed MRSA and enterbacter. Blood cultures were MRSA + /. Patient underwent I&D on 05/11 with cultures growing MRSA and clincially revealing osteomyelitis and severe hardware infection. It was recommended patient continue 6 weeks IV abx with indefinite suppression unless hardware removed. Patient's surgeon is in [place]. Patient has complicated anatomy and would require extensive follow up. If his mediacid were to switch states, he would lose coverage in [place] to see his surgeon. Orthopedics was consulted to eval if it was a procedure able to be accomplished here. Ortho did not feel it could be done at [facility] and would require not only tertiary support, but significant prolonged follow up and potential for BKA. Patient understands he could stay here for 6 weeks for IV abx, but a medicaid application would be submitted to pursue benefits and follow up. Patient wished to go to [place]. Orthopedics coordinated and discussed with [facility] in [place] that patient is likely to leave and head there. Given patient is to leave without IV antibiotics or clear discharge planning, it was discussed this would be consider Against Medical Advice. Patient reports his will come to get him at 2-3am and he will drive to [place]. It was emphasized that he needs to go promptly to the hospital if this is his course of action to ensure he doesnt lapse on his antibiotics and that there is risk for leaving the hospital. Patient verbalized understanding. Against Medical Advice--patient to self transport to [place] given insurance concerns and patient's primary surgeon; patient verbalized understanding of risks of not going promptly to the hospital for care and the risks of missing antibiotics iso MRSA bacteremia and hardware infection. #MRSA bacteremia #Left ankle osteomyelitis and hardware infection blood cultures +MRSA 05/09, negative 05/11 ankle +MRSA and enterococcus Plan to discuss with ID final abx regimen -TT with Dr. Garay: continue vanco/cefe for 6 weeks, 06/22. -after IV abx, patient to transition to indefinite PO suppression with doxycycline 100mg bid and cipro 500mg bid, unless hardware removed -continue rifampin 300mg bid for 3months biopsy from 05/11 pending wbat with crutches on lle podiatry following, W2D dressings while admitted orthopedics consult in morning for discussion of hardware removal #Diabetes a1c 6.1% controlled Hold metformin Insulin sliding scale #Hypoxia Oxygen sats dropping while sleeping nocturnal pulse ox study an hour <89% sleep study as out patient. Notes For Next Care Provider Medication Changes From Visit Recommended until 06/22 -Vancomycin 1250 q 8h 0800, 1600, 0000 -Cefepime 2g q8h 0800, 1600, 0000 -Rifampin 300mg bid () Thereafter doxycycline 100mg bid and cipro 500mg bid until hardware removed Admission HPI Per Admitting Provider 44-year-old male Portuguese-speaking unassigned patient with past med history significant for diabetes, history of multiple surgeries to left ankle presents with infection of the left ankle site. Used Portuguese translation services to communicate with the patient. Patient says few years back at [facility] he fell noam n and injured his left ankle. Since then he had multiple surgeries. Patient is from [facility] and visiting [place]. Last surgery was in October. After last surgery he developed infection and was hospitalized for about a week and was treated with IV antibiotics and was discharged on oral antibiotics. States he took last oral antibiotics about 3 weeks ago. Last couple of days he was having fevers. Also noticed some drainage from the left ankle wound site. Which prompted him come to the ER. Denies any pain in the leg. Denies any other complaints. Denies any headache. No runny nose or sore throat or cough. No chest pain or shortness of breath. No nausea. No abdominal pain. Appetite is okay. Normal bowel and bladder movements. Ambulating okay. Hemodynamics are okay. Past medical history. As mentioned above Past surgical history. Multiple left ankle surgeries. Back surgery. Social history. Denies smoking. No alcohol use. No drug use. Family history. Mother had diabetes. Admission Exam Per Admitting Provider General- Not in distress Head- atraumatic Eyes- PERRL. ENT- oropharynx clear Neck- supple, no JVD. Lungs- clear to auscultation no wheezing or crackles Heart- regular rhythm; no murmur, no gallop. Abdomen- normal bowel sounds, soft, nontender, no distension. Extremities- Left ankle swollen and small opening seen on medial aspect with mild drainage Neuro- alert, oriented PERRL, no facial palsy; no dysarthria; moves extremities Discharge Exam Constitutional WD/WN, vitals as above Respiratory normal respiratory effort, lungs clear to auscultation Cardiovascular RRR, no murmur, no edema Gastrointestinal (Abdomen) normal bowel sounds, soft, nontender, no hepatosplenomegaly Updated Medication List Medication Instructions Recorded Confirmed Type metformin 500 mg tablet 500 mg PO BID 05/09/25 05/09/25 History acetaminophen 325 mg tablet 650 mg (2 x 325 mg) PO Q4H PRN #0 05/17/25 Rx tabs cefepime 2 gram solution for 1 g IV Q8H 05/17/25 Rx injection enoxaparin 40 mg/0.4 mL 40 mg (0.4 mL) subcut Q24H #0 mL 05/17/25 Rx subcutaneous syringe (Lovenox) rifampin 300 mg capsule 300 mg PO BID #0 caps 05/17/25 Rx vancomycin 1.25 gram intravenous 1.25 g IV Q8H 05/17/25 Rx solution Hospital Stay Data Consultations 05/09/25 23:21 ED Decision to Admit Stat 05/10/25 08:00 Consult Podiatry Routine 05/10/25 14:59 Consult Infectious Diseases Routine 05/17/25 07:56 Consult Orthopedic Surgery Routine Procedures Performed Operation Date: 05/11/25 08:20 Actual Procedures p Left Ankle Incision and Drainage with Bone Biopsy and Cultures(Left) - Thuan Wadsworth DPM Diagnostic Imagining Performed 05/09/25 20:58 CT ankle LT w con Stat US venous doppler LE LT Stat Pending Results Patient Have Any Pending Studies at Discharge: No Discharge Instructions Given to Patient (Per Discharging Provider) Mr. Ryan is a 44-year-old male Portuguese-speaking patient with past med history significant for diabetes, history of multiple surgeries to left ankle presents with infection of the left ankle site admitted for left ankle infection. Patient reports that he has no insurance. Blood cultures and hardware with MRSA infection. Patient will require IV antibiotics for 6 weeks and indefinite suppression until hardware removed. Admission prolonged 2/2 insurance concerns and discharge planning. Patient will likely remain admitted for IV abx for 6 weeks with suppressive regimen there after. Concern is if we change his insurance to [place] he will lose coverage for hardware removal in [place]. Patient would like to leave and go to [place] for continued care. #MRSA bacteremia #Left ankle osteomyelitis and hardware infection blood cultures +MRSA 05/09, negative 05/11 ankle +MRSA and enterococcus Plan to discuss with ID final abx regimen -Cefepime and Vanc started 05/09 -TT with Dr. Garay: continue vanco/cefe for 6 weeks, 06/22. -after IV abx, patient to transition to indefinite PO suppression with doxycycline 100mg bid and cipro 500mg bid, unless hardware removed -continue rifampin 300mg bid for 3months Plan for PICC once dispo plan clarified biopsy from 05/11 pending wbat with crutches on lle podiatry following, W2D dressings while admitted orthopedics consult in morning for discussion of hardware removal #Diabetes a1c 6.1% controlled Hold metformin Insulin sliding scale #Hypoxia Oxygen sats dropping while sleeping nocturnal pulse ox study an hour <89% sleep study as out patient. DVT prophylaxis Lovenox for now El Sr. Ryan, paciente varn de 44 aos, hispanohablante, con antecedentes de diabetes y mltiples cirugas en el tobillo libia, presenta jamil infeccin en la ying de la incisin. Ingres por esta infeccin. El paciente refiere no tener seguro mdico. Los hemocultivos y el material de osteosntesis resultaron positivos para SARM. El paciente requerir antibiticos intravenosos german 6 semanas y supresin indefinida hasta la extraccin del material. El ingreso se prolong debido a problemas con el seguro mdico y la planificacin del moisés. Es probable que el paciente permanezca ingresado german 6 semanas para recibir antibiticos intravenosos, seguidos de un rgimen supresor. Existe preocupacin de que, si se cambia guzmán seguro a [place], pierda la cobertura para la extraccin del material en [place]. El paciente desea ser dado de moisés y trasladarse a [place] para continuar guzmán tratamiento. #Bacteriemia por SARM #Osteomielitis e infeccin del material de osteosntesis en el tobillo libia Hemocultivos positivos para SARM el 09/05, negativos el 11/05 Tobillo positivo para SARM y enterococo Se planea discutir con el especialista en enfermedades infecciosas el rgimen antibitico final -Cefepima y vancomicina iniciadas el 09/05 -Consulta con el Dr. Garay: continuar vancomicina/cefeepima german 6 semanas, a partir del 11/27. -Tras la administracin de antibiticos intravenosos, el paciente pasar a jamil supresin oral indefinida con doxiciclina 100 mg dos veces al da y ciprofloxacino 500 mg dos veces al da, a menos que se retire el material de osteosntesis. -Continuar con rifampicina 300 mg dos veces al da german 3 meses. Planificar la colocacin de un catter PICC jamil vez aclarado el plan de moisés. Biopsia del 11/05 pendiente. El paciente caminar con muletas en la pierna izquierda. Consulta de podologa a continuacin. Curas cada dos cody german la hospitalizacin. Consulta de ortopedia por la maana para discutir la extraccin del material de osteosntesis. #Diabetes A1c 6.1% controlada. Suspender la metformina. Ajustar la dosis de insulina segn escala mvil. #Hipoxia Saturacin de oxgeno disminuye german el sueo. Saturacin de oxgeno nocturna cada hora <89%. Estudio del sueo ambulatorio. Profilaxis de TVP. Lovenox por ahora. Total Time Total Time Spent Total Time Spent (In Minutes): 99
--- NOTE | 2025-05-17 19:49 | Orthopedic Consultation ---
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 Given the complexity of his previous surgeries and his current infection, he will require treatment at a tertiary care center that can provide the higher level of care required to salvage his leg. We are unable to provide this level of care at our current facility. He is at significant risk for further infection given the MRSA infection around his current hardware. Risk of requiring a below-knee amputation was discussed with the patient. While such a procedure could easily be performed here, he would like to do all care possible to avoid losing his lower leg. Option of transfer to [facility], or [facility] in [place] was discussed with him. Given the limitations of his current insurance, he wanted to try and return to [facility], where his previous surgeries were performed. Unfortunately, there is no ability for ambulance transport outside of the [facility] borders of [place]. After further extensive discussion with Dr. Toledo from the hospitalist team and case management here at the hospital, the patient elected to be discharged and have his provide transportation in a private vehicle to get him to [facility]. In hoping to get him there as expeditiously as possible, we attempted to have hi m depart after his afternoon antibiotic administration. Unfortunately, his was not able to leave work and provide transport at that time. In order that he would not miss any antibiotic doses, he will depart after his midnight dosing. He is to report directly to the [place] ED for admission. The orthopedic service, hospitalist, and CRYPTANALYST are aware, and the CRYPTANALYST verified that the ED will be adequately notified. I personally spent over 180 minutes in review of this patient's chart, direct communication and care, consultation with the chief orthopedic resident Abdelrahman Maguire at [facility], discussion with the hospitalist Dr. Callejas at [facility], and the CRYPTANALYST. Dr. Ya was kept informed regarding this patient's current findings, plan of care, and ultimate disposition. Supervising Physician Co-Signing Physician Notes I reviewed patient's chart and images, agree with above note. Jairon Harris performed the substantive portion of the visit. History of Present Illness Reason for Consultation: Left ankle open wound with infected hardware Attending Physician: Slime Toledo MD History of Present Illness This 44-year-old male is seen today for evaluation of his left lower leg. He speaks primarily Samoan, and the aircraft skin burnisher service was used extensively through his visit. The patient states he previously had orthopedic surgery on his left leg in October of this year at [facility] in [facility]. He is unsure exactly of what transpired, but believes he had hardware placed in his leg. He states he has had numerous procedures on this leg, originally stemming from an injury in [place] where he fell onto some boulders. He knows he has had at least 3 orthopedic procedures at [facility]. He states af ter his October procedure, the leg became infected and he was placed on extended oral antibiotics. He states he just finished them 3 weeks ago. 2 weeks ago he had an appointment with the plastics department at [facility]. He took a photo of his leg at that time and presents today. He states the leg was swollen and there was scabbing medially. He states he was given dressings but not any further antibiotics. He arrived here to visit his , who has obtained a job in the area. While here, the scab fell off and an ulceration was noted with purulence. He developed a fever, and came to the ED for evaluation. The patient was admitted and podiatry was consulted. Probing of the wound found exposure of hardware and tibial bone. Removal of the screw was performed by podiatry and bone cultures were obtained. These were positive for MRSA. Blood cultures obtained initially in the ED were also positive for MRSA. Normal radiographs and CT scan imaging of the ankle were obtained to rule out osteomyelitis. Orthopedics was consulted for further management at this time. Allergies Allergy/AdvReac Type Severity Reaction Status Date / Time No Known Allergies Allergy Verified 05/09/25 21:20 Home Medications Medication Instructions Recorded Confirmed Type metformin 500 mg tablet 500 mg PO BID 05/09/25 05/09/25 History acetaminophen 325 mg tablet 650 mg (2 x 325 mg) PO Q4H PRN #0 05/17/25 Rx tabs cefepime 2 gram solution for 1 g IV Q8H 05/17/25 Rx injection enoxaparin 40 mg/0.4 mL 40 mg (0.4 mL) subcut Q24H #0 mL 05/17/25 Rx subcutaneous syringe (Lovenox) rifampin 300 mg capsule 300 mg PO BID #0 caps 05/17/25 Rx vancomycin 1.25 gram intravenous 1.25 g IV Q8H 05/17/25 Rx solution Patient History Medical History Diabetes mellitus Surgical History (Updated 05/17/25 @ 19:45 by Jairon Harris PA-C) History of removal of retained hardware Status post open reduction and internal fixation (ORIF) of fracture Family History (Updated 05/17/25 @ 19:45 by Jairon Harris PA-C) Other No pertinent family history Social History Smoking Status: Unknown if ever smoked Hx Alcohol Use: No Hx Substance Use: No Preferred Language: Samoan Communication Ability: Effective Communication Tools: IPad and Language Line Vault Person Vault Person Required: Yes Beliefs That Will Affect Care: None Current Living Situation: Family Feels Safe at Home: Yes Assistive Devices: None Review of Systems Review of Systems: All systems reviewed & are unremarkable except as noted in HPI & below Physical Exam Physical Exam: General: Well-developed, well-nourished, middle-aged male, in no acute distress. Laying on the bed. Alert and oriented. Coherent. Skin: Warm and dry with good turgor. Extensive scarring is present on the left lower leg. He has a bandage in place. Upon removal, he has a 3 cm open wound present on the medial aspect of his tibia. It is currently oozing bloody serous drainage. A mild amount of purulence is noted. He has sutures in place close and part of the previous incision. No significant edema or effusion. Musculoskeletal: The patient has intact motor function of his hip and knee. Ankle range of motion is significantly limited. Motor function of the toes is intact. He is able to perform a straight leg raise. Neurologic: Gross sensation is intact across the left leg by soft touch. Mildly blunted sensation across the foot secondary to scarring. Peripheral pulses are 2+. Results & Data Vital Signs (Past 12 Hours) Vital Signs Temp Pulse Resp BP Pulse Ox O2 Del Method 05/17/25 16:52 37.0 C 93 H 20 118/71 95 Room Air Laboratory Results CBC obtained yesterday morning shows a white count of 5.29. H&H of 12.6 and 37.3. Electrolytes are normal. BUN of 22 with creatinine 0.98. Glucose this morning was 136. Soft tissue culture obtained on 05/09 was positive for Enterobacter Cloacae that is sensitive to cefepime. Blood cultures obtained on 05/09 were positive for MRSA. Intraoperative tibial bone culture was positive for MRSA, sensitive to vancomycin and rifampin. Diagnostic Findings Radiographic imaging previously obtained was reviewed. 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 There is extensive orthopedic hardware and the distal locking screw from his IM jim appears to have been removed. There is extensive broken hardware on the tibial plates and some elevation of the periosteum. 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 There is intact orthopedic hardware in the midfoot without visible complication. Previous fibular resection is noted. CT scan imaging shows diffuse circumferential fat stranding and soft tissue swelling through the distal calf, ankle, and dorsum of the foot. No obvious loculated fluid collections. No tracking subcutaneous emphysema or evidence of necrotizing fasciitis. He has extensive postoperative changes. Nonunion of the tibial fracture is noted. Echocardiogram was obtained on 05/12/2025 that was negative for endocarditis. (1) 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
[2025-05-18] MEDS ORDERED: VANCOMYCIN LEVEL ONE (07:00)
--- NOTE | 2025-05-31 09:32 | Operative Report ---
Post Operative Report Pre & Post Diagnosis Operation Date: 05/11/25 08:20 Pre-Op Diagnosis: LEFT FOOT INFECTION Post-Op Diagnosis: LEFT FOOT INFECTION I identified the patient and participated in the time-out.: Yes Procedure Operation Date: 05/11/25 08:20 Actual Procedures p Left Ankle Incision and Drainage with Bone Biopsy and Cultures(Left) - Thuan Wadsworth DPM Surgeon Thuan Wadsworth DPM Lumber Buyer None Estimated Blood Loss 10 Findings Consistent with Post-Op Diagnosis Specimens Left tibial bone and tibial screw were sent to pathology with deep bone biopsy and cultures obtained. Anesthesia Type General Complications none Disposition Accompanied Patient To Recovery: Yes Disposition: Recovery Room Indications This patient is a recent ER consult of ours who presented with acute infection of his left ankle. He has a complicated history of open reduction and internal fixation leading to fusions and multiple surgical interventions for the ankle and rear foot. He has been under the treatment of his orthopedic team with infectious disease as well in his home state of [place] but has recently moved to [place] with his . Now, he noted increasing swelling, drainage, and wound formation to the left lower extremity and presented to the emergency department for acute care. He states that he has significant concerns of his insurance coverage here in [facility] and wanted to attempt to balance cost of procedures and definitive treatment here while also working to get back home to his orthopedic team for more definitive care. We discussed that in the short- term, bone biopsies and an incision and drainage would offer the best chance of stabilizing him but would not be definitive. He would require further arthrodesis after hardware removal and likely antibiotics. Preoperative in structions, postoperative instructions, risks and benefits, and likely outcomes were all discussed at length. Consent was obtained with the use of a toolroom attendant for this procedure. All questions were answered. Description of Procedure The patient was brought to the operating room placed on the operating table in the supine position. Following ministration of general anesthesia, local analgesia was obtained utilizing 20 cc of half percent Marcaine and a ankle block fashion. No tourniquet was utilized during the duration of the procedure given the patient's suspected infection. The left lower extremity was scrubbed, prepped, and draped in the usual aseptic manner. Attention was directed to the left anterior ankle where a nonhealing surgical wound dehiscence was appreciated. Upon debridement of the wound bed, there was underlying tibial bone and intraoperative hardware immediately visualized. This was consistent with a locking screw through the jim previously placed. Due to the loosening and the purulence associated with the screw, it was removed and passed off to the back table. The intramedullary jim was not directly visualiz ed and was left intact. Energy Efficiency Specialist samples of bone from the surgical site were sent for pathology and culture and sensitivity testing. Further, all nonviable necrotic wound bed and tissue were resected with a combination of 15 blade and curette with rongeur. The surgical site was flushed with copious months of sterile saline and packed with iodoform gauze and Betadine soaked gauze. The wound was dressed with Xeroform gauze, 4 x 4 gauze, Kerlix, and an César wrap. The patient tolerated the procedure well was transferred to the recovery room with vital signs stable and vascular status intact to the feet. Following postoperative monitoring, he will be transferred back to the floor for further monitoring and and likely long-term decision making while ensuring his infection is under better control. I attest to the content of the Intraoperative Record and any orders documented therein. Any exceptions are noted below.
== END 2025-05-18 03:58 | disposition left against medical advice (07) | DRG 464 ==
LOC: ED 20:29 → SUATTDRO 05-10 00:18 → EDINP 05-10 00:18 → 3E 05-10 15:45